=== PATIENT | female | born 1940 | race Two or more races ===

== ENCOUNTER → 2016-08-09 | Outpatient (CLI) | payer OTHER ==
[~2016-08-09] MED LIST: AMLO10TA2 OR; GLYB2.5T76 OR; LISIPOW; METF-312 OR
[2016-08-09 14:30] LABS: Basophils # (auto) 0.1 uL; Basophils % (auto) 0.6 % (0.0-2.0); Eosinophils # (auto) 0.2 uL; Hematocrit 43.7 % (36.0-46.0); Hemoglobin 13.8 g/dL (12.2-16.2); Lymphocytes # (auto) 2.1 uL; Lymphocytes % (auto) 22.7 % (10.0-50.0); Mean Corpuscular Hgb Conc. 31.6 g/dL (32.0-36.0); Mean Corpuscular Volume 88.4 fL (80.0-100.0); Mean Platelet Volume 8.5 fL (7.4-10.4); Monocytes # (auto) 0.5 uL; Monocytes % (auto) 5.2 % (0.0-12.0); Neutrophils # (auto) 6.4 uL; Neutrophils % (auto) 69.5 % (37.0-80.0); Platelet Count (auto) 271 10^3/uL (140-450); Red Cell Distribution Width 13.8 % (11.6-16.0); White Blood Cell 9.2 10^3/uL (4.4-10.8)
[2016-08-09 14:48] LABS: INR 1.01 (0.9-1.15); Partial Thromboplastin Time 26.6 sec (22.64-33.71); Prothrombin Time 10.4 sec (9.37-12.3)
[2016-08-09 14:55] LABS: Albumin 3.6 g/dL (3.4-5.0); Calcium 9.2 mg/dL (8.5-10.1)
[2016-08-09 15:02] LABS: Urine Bilirubin Negative (Negative); Urine Blood Negative /uL (Negative); Urine Color Yellow (Yellow); Urine Glucose TRACE mg/dL (Normal); Urine Ketone Negative (Negative); Urine Nitrite Negative (Negative); Urine RBC 2 /hpf (0 - 4); Urine Squamous Epithelial Cell FEW /hpf (<5); Urine Urobilinogen Normal (Negative)
[2016-08-09 15:16] LABS: BUN/Creatinine Ratio 23.3; Bilirubin, Total 0.4 mg/dL (0.2-1.0); Total Protein 7.8 g/dL (6.4-8.2)
== END | disposition home or self-care (01) ==
LOC: LAB 14:11
PROVIDERS: ATTEND Orthopaedic Surgery
DX: M17.9 Osteoarthritis of knee, unspecified (principal)
CPT/HCPCS: 36415; 80053; 81001; 85025; 85610; 85730; 86850; 86900; 86901

== ENCOUNTER → 2016-08-09 | Outpatient (CLI) | payer OTHER ==
[2016-08-09 13:44] LABS: Basophils # (auto) 0 uL; Basophils % (auto) 0.6 % (0.0-2.0); Eosinophils # (auto) 0.2 uL; Hematocrit 45.2 % (36.0-46.0); Hemoglobin 14.1 g/dL (12.2-16.2); Lymphocytes % (auto) 25.6 % (10.0-50.0); Mean Corpuscular Hemoglobin 27.9 pg (28.0-32.0); Mean Corpuscular Hgb Conc. 31.3 g/dL (32.0-36.0); Mean Corpuscular Volume 89.2 fL (80.0-100.0); Mean Platelet Volume 9.3 fL (7.4-10.4); Monocytes # (auto) 0.4 uL; Monocytes % (auto) 5.4 % (0.0-12.0); Neutrophils # (auto) 5.2 uL; Neutrophils % (auto) 66.4 % (37.0-80.0); Platelet Count (auto) 251 10^3/uL (140-450); White Blood Cell 7.9 10^3/uL (4.4-10.8)
[2016-08-09 13:59] LABS: Urine Bilirubin Negative (Negative); Urine Blood Negative /uL (Negative); Urine Color Yellow (Yellow); Urine Glucose Normal (Normal); Urine Ketone Negative (Negative); Urine Nitrite Negative (Negative); Urine RBC 2 /hpf (0 - 4); Urine Squamous Epithelial Cell FEW /hpf (<5); Urine Urobilinogen Normal (Negative); Urine pH 6.5 (5.0-8.0)
[2016-08-09 14:28] LABS: Albumin 3.7 g/dL (3.4-5.0); Calcium 9.4 mg/dL (8.5-10.1); Potassium 3.9 mmol/L (3.5-5.1)
[2016-08-09 15:17] LABS: BUN/Creatinine Ratio 25.3; Bilirubin, Total 0.5 mg/dL (0.2-1.0); Total Protein 8.2 g/dL (6.4-8.2)
== END | disposition home or self-care (01) ==
LOC: LAB 10:26
PROVIDERS: ATTEND Internal Medicine
DX: E11.42 Type 2 diabetes mellitus with diabetic polyneuropathy (principal); I10 Essential (primary) hypertension
CPT/HCPCS: 36415; 80053; 80061; 81001; 82043; 82607; 83036; 84439; 84443; 85025; 85652

== ENCOUNTER → 2016-08-13 | Day surgery (SDC) | payer OTHER ==
[~2016-08-13] VITALS: Ht 154.9 cm; Wt 63.0 kg
[~2016-08-13] MED LIST changes: +SUCCINYLCHOLINE CHLORIDE 20 MG/ML 10ML VIAL IV ONE; +ceFAZolin 1GM/50ML D5W 100 ML IV ONE
[2016-08-13 10:20] VITALS: BP 135/66
== END | disposition home or self-care (01) ==
LOC: SUR 09:53
PROVIDERS: ATTEND Orthopaedic Surgery
DX: Z53.9 Procedure and treatment not carried out, unspecified reason (principal)
CPT/HCPCS: 82962; 86850; 86900; 86901; J0330; J0690

== ENCOUNTER → 2016-11-29 | Outpatient (CLI) | payer OTHER ==
[~2016-11-29] MED LIST changes: -SUCCINYLCHOLINE CHLORIDE 20 MG/ML 10ML VIAL IV ONE; -ceFAZolin 1GM/50ML D5W 100 ML IV ONE
[2016-11-29 10:02] LABS: Basophils # (auto) 0 uL; Basophils % (auto) 0.6 % (0.0-2.0); Eosinophils # (auto) 0.2 uL; Eosinophils % (auto) 2.2 % (0.0-7.0); Hematocrit 40.6 % (36.0-46.0); Hemoglobin 13.9 g/dL (12.2-16.2); Lymphocytes # (auto) 1.8 uL; Lymphocytes % (auto) 24.4 % (10.0-50.0); Mean Corpuscular Hemoglobin 29.8 pg (28.0-32.0); Mean Corpuscular Hgb Conc. 34.2 g/dL (32.0-36.0); Mean Corpuscular Volume 87.2 fL (80.0-100.0); Mean Platelet Volume 8.2 fL (7.4-10.4); Monocytes # (auto) 0.4 uL; Monocytes % (auto) 5.3 % (0.0-12.0); Neutrophils % (auto) 67.5 % (37.0-80.0); Platelet Count (auto) 257 10^3/uL (140-450); Red Cell Distribution Width 14.6 % (11.6-16.0); White Blood Cell 7.4 10^3/uL (4.4-10.8)
[2016-11-29 10:05] LABS: Urine Bilirubin Negative (Negative); Urine Blood Negative /uL (Negative); Urine Color Yellow (Yellow); Urine Glucose Normal (Normal); Urine Ketone Negative (Negative); Urine Nitrite Negative (Negative); Urine RBC <1 /hpf (0 - 4); Urine Urobilinogen Normal (Negative); Urine pH 6.5 (5.0-8.0)
[2016-11-29 10:21] LABS: Albumin 3.7 g/dL (3.4-5.0); BUN/Creatinine Ratio 24.7; Bilirubin, Total 0.4 mg/dL (0.2-1.0); Calcium 9.1 mg/dL (8.5-10.1); Potassium 4.1 mmol/L (3.5-5.1); Total Protein 7.9 g/dL (6.4-8.2)
[2016-11-29 10:26] LABS: INR 0.98 (0.9-1.15); Partial Thromboplastin Time 26.6 sec (22.64-33.71); Prothrombin Time 10.7 sec (9.37-12.3)
== END | disposition home or self-care (01) ==
LOC: LAB 09:42
PROVIDERS: ATTEND Internal Medicine
DX: E11.9 Type 2 diabetes mellitus without complications (principal); I10 Essential (primary) hypertension; Z01.812 Encounter for preprocedural laboratory examination
CPT/HCPCS: 36415; 80053; 80061; 81001; 83036; 85025; 85610; 85730

== ENCOUNTER → 2017-02-26 | Outpatient (CLI) | payer OTHER ==
[~2017-02-26] MED LIST changes: -METF-312 OR; +METF-370 OR
[2017-02-26 11:01] LABS: Cholesterol 217 mg/dL (< 200); HDL Cholesterol 56 mg/dL (40-59); LDL Cholesterol 143 mg/dL (< 100); Triglycerides 186 mg/dL (< 150)
== END | disposition home or self-care (01) ==
LOC: LAB 09:44
PROVIDERS: ATTEND Internal Medicine
DX: E11.9 Type 2 diabetes mellitus without complications (principal); E78.3 Hyperchylomicronemia
CPT/HCPCS: 36415; 80061; 83036

== ENCOUNTER → 2017-04-09 | Outpatient (CLI) | payer OTHER ==
[~2017-04-09] VITALS: Ht 154.9 cm; Wt 63.5 kg
[~2017-04-09] MED LIST changes: +ADENOSINE 53 MG in GIVE UN-DILUTED 0 ML IV STA
== END | disposition home or self-care (01) ==
LOC: XY 08:14
PROVIDERS: ATTEND Internal Medicine Cardiovascular Disease
DX: I08.1 Rheumatic disorders of both mitral and tricuspid valves (principal)
CPT/HCPCS: 78452; 93017; 93306; A9500; J0153

== ENCOUNTER → 2017-10-15 | Outpatient (CLI) | payer OTHER ==
[~2017-10-15] MED LIST changes: -ADENOSINE 53 MG in GIVE UN-DILUTED 0 ML IV STA; -GLYB2.5T76 OR; +GLYB5TAB8 PO; -LISIPOW; +LOSA100T27 PO
[2017-10-15 09:31] LABS: Urine Bacteria NONE SEEN /hpf (None Seen); Urine Blood Negative /uL (Negative); Urine Specific Gravity 1.011 (1.001-1.035); Urine WBC 1 /hpf (0 - 5)
[2017-10-15 09:45] LABS: Cholesterol 190 mg/dL (< 200); HDL Cholesterol 66 mg/dL (40-59); LDL Cholesterol 116 mg/dL (< 100); Triglycerides 91 mg/dL (< 150)
== END | disposition home or self-care (01) ==
LOC: LAB 08:55
PROVIDERS: ATTEND Internal Medicine
DX: I12.9 Hypertensive chronic kidney disease with stage 1 through stage 4 chronic kidney disease, or unspecified chronic kidney disease (principal); E11.22 Type 2 diabetes mellitus with diabetic chronic kidney disease; N18.2 Chronic kidney disease, stage 2 (mild)
CPT/HCPCS: 36415; 80061; 81001; 83036; 84443

== ENCOUNTER → 2018-04-06 | Outpatient (CLI) | payer OTHER ==
[~2018-04-06] MED LIST changes: +AMLO10TA12 OR; -AMLO10TA2 OR; +LOSA-49 PO; -LOSA100T27 PO
[2018-04-06 10:30] LABS: Basophils # (auto) 0 uL; Basophils % (auto) 0.6 % (0.0-2.0); Eosinophils # (auto) 0.2 uL; Eosinophils % (auto) 3.5 % (0.0-7.0); Hematocrit 44.1 % (36.0-46.0); Hemoglobin 14.6 g/dL (12.2-16.2); Lymphocytes # (auto) 1.7 uL; Lymphocytes % (auto) 23.5 % (10.0-50.0); Mean Corpuscular Volume 90.8 fL (80.0-100.0); Monocytes # (auto) 0.4 uL; Neutrophils # (auto) 4.7 uL; Neutrophils % (auto) 66.4 % (37.0-80.0); Platelet Count (auto) 203 10^3/uL (140-450); Red Blood Cells 4.86 10^6/uL (4.0-5.20); Red Cell Distribution Width 15.4 % (11.8-14.3); White Blood Cell 7.1 10^3/uL (4.4-10.8)
[2018-04-06 10:55] LABS: Albumin 3.7 g/dL (3.4-5.0); BUN/Creatinine Ratio 28.6; Bilirubin, Total 0.4 mg/dL (0.2-1.0); Calcium 9.1 mg/dL (8.5-10.1); Potassium 4.5 mmol/L (3.5-5.1); Total Protein 7.6 g/dL (6.4-8.2)
[2018-04-06 11:08] LABS: Free T4 (Free Thyroxine) 0.96 ng/dL (0.89-1.76)
== END | disposition home or self-care (01) ==
LOC: LAB 09:50
PROVIDERS: ATTEND Internal Medicine
DX: I10 Essential (primary) hypertension (principal); E11.9 Type 2 diabetes mellitus without complications
CPT/HCPCS: 36415; 80053; 82043; 82607; 83036; 83721; 84439; 84443; 85025

== ENCOUNTER → 2018-09-29 | Outpatient (CLI) | payer OTHER ==
[2018-09-29 10:58] LABS: Albumin 3.8 g/dL (3.4-5.0); Calcium 9.2 mg/dL (8.5-10.1); Potassium 3.7 mmol/L (3.5-5.1)
[2018-09-29 11:03] LABS: BUN/Creatinine Ratio 20.4; Bilirubin, Total 0.9 mg/dL (0.2-1.0); Total Protein 7.9 g/dL (6.4-8.2)
== END | disposition home or self-care (01) ==
LOC: LAB 10:20
PROVIDERS: ATTEND Internal Medicine
DX: E11.22 Type 2 diabetes mellitus with diabetic chronic kidney disease (principal); I12.9 Hypertensive chronic kidney disease with stage 1 through stage 4 chronic kidney disease, or unspecified chronic kidney disease; N18.3 Chronic kidney disease, stage 3 (moderate)
CPT/HCPCS: 36415; 80053; 80061; 83036

== ENCOUNTER 2018-12-26 21:19 | Inpatient (IN) | payer OTHER | END 2019-01-01 15:00 | disposition home or self-care (01) | LOC: TELE-CENTR 12-29 15:00 → TELE 21:21 → TELE-CENTR 12-27 04:34 → DOU IN ICU 12-27 18:27 → ER 21:19 | DX: A41.9 Sepsis, unspecified organism (principal); G93.41 Metabolic encephalopathy; J18.9 Pneumonia, unspecified organism; N17.9 Acute kidney failure, unspecified; N39.0 Urinary tract infection, site not specified ==

== ENCOUNTER → 2019-01-14 | Outpatient (CLI) | payer OTHER ==
[~2019-01-14] MED LIST changes: -AMLO10TA12 OR; +AMLO10TA12 PO; +ASPI-498 PO; +ATOR40TA52 PO; +GLIP-116 PO; -GLYB5TAB8 PO; +IBUP600T27 PO; -METF-370 OR; +METF-372 PO
[2019-01-14 13:45] LABS: Basophils # (auto) 0.1 uL; Eosinophils # (auto) 0 uL; Lymphocytes # (auto) 0.9 uL; Monocytes # (auto) 0.2 uL
[2019-01-14 13:48] LABS: Eosinophils % (auto) 0.1 % (0.0-7.0); Hematocrit 37.4 % (36.0-46.0); Hemoglobin 12.7 g/dL (12.2-16.2); Lymphocytes % (auto) 12.1 % (10.0-50.0); Mean Corpuscular Hemoglobin 30.5 pg (28.0-32.0); Mean Corpuscular Hgb Conc. 34.1 g/dL (32.0-36.0); Mean Corpuscular Volume 89.5 fL (80.0-100.0); Monocytes % (auto) 3.1 % (0.0-12.0); Neutrophils % (auto) 83.7 % (37.0-80.0); Nucleated Red Blood Cells % 0.1 %; Red Blood Cells 4.18 10^6/uL (4.0-5.20); Red Cell Distribution Width 14.4 % (11.8-14.3); White Blood Cell 7.2 10^3/uL (4.4-10.8)
[2019-01-14 13:52] LABS: Platelet Count (auto) 464 10^3/uL (140-450)
[2019-01-14 13:55] LABS: Urine Bacteria NONE SEEN /hpf (None Seen); Urine Blood Negative /uL (Negative); Urine Specific Gravity 1.017 (1.001-1.035); Urine WBC 9 /hpf (0 - 5)
[2019-01-14 14:08] LABS: Albumin 3.5 g/dL (3.4-5.0); Anion Gap 11 (5-15); BUN/Creatinine Ratio 28.8; Blood Urea Nitrogen 40 mg/dL (7-18); Calcium 9.3 mg/dL (8.5-10.1); Carbon Dioxide 22 mmol/L (21-32); Chloride 107 mmol/L (98-107); GFR African American 47 mL/min; GFR Non-African American 39 mL/min; Glucose 172 mg/dL (74-106); Potassium 4.6 mmol/L (3.5-5.1); Sodium 140 mmol/L (136-145)
[2019-01-14 14:11] LABS: Alanine Aminotransferase 28 U/L (13-56); Alkaline Phosphatase 90 U/L (45-117); Aspartate Aminotransferase 17 U/L (15-37); Bilirubin, Total 0.4 mg/dL (0.2-1.0); Total Protein 8.2 g/dL (6.4-8.2)
== END | disposition home or self-care (01) ==
LOC: LAB 13:16
PROVIDERS: ATTEND Internal Medicine
DX: I12.9 Hypertensive chronic kidney disease with stage 1 through stage 4 chronic kidney disease, or unspecified chronic kidney disease (principal); E11.22 Type 2 diabetes mellitus with diabetic chronic kidney disease; N18.3 Chronic kidney disease, stage 3 (moderate); E87.6 Hypokalemia
CPT/HCPCS: 36415; 80053; 81001; 85025

== ENCOUNTER → 2019-01-19 | Outpatient (CLI) | payer OTHER ==
[2019-01-19 09:07] LABS: Partial Thromboplastin Time 25.2 sec (23.64-32.05)
[2019-01-19 09:51] LABS: Basophils # (auto) 0.1 uL; Eosinophils # (auto) 0.3 uL; Eosinophils % (auto) 2.5 % (0.0-7.0); Hemoglobin 12.3 g/dL (12.2-16.2); Lymphocytes # (auto) 2.3 uL; Lymphocytes % (auto) 22.2 % (10.0-50.0); Mean Corpuscular Hemoglobin 29.9 pg (28.0-32.0); Mean Corpuscular Hgb Conc. 33.3 g/dL (32.0-36.0); Mean Corpuscular Volume 89.9 fL (80.0-100.0); Monocytes # (auto) 0.5 uL; Monocytes % (auto) 4.4 % (0.0-12.0); Neutrophils # (auto) 7.3 uL; Neutrophils % (auto) 69.9 % (37.0-80.0); Platelet Count (auto) 312 10^3/uL (140-450); Red Blood Cells 4.11 10^6/uL (4.0-5.20); Red Cell Distribution Width 14.5 % (11.8-14.3); White Blood Cell 10.4 10^3/uL (4.4-10.8)
== END | disposition home or self-care (01) ==
LOC: LAB 08:10
PROVIDERS: ATTEND Internal Medicine
DX: Z01.818 Encounter for other preprocedural examination (principal); E04.1 Nontoxic single thyroid nodule; E78.00 Pure hypercholesterolemia, unspecified; E11.9 Type 2 diabetes mellitus without complications
CPT/HCPCS: 36415; 85025; 85610; 85730

== ENCOUNTER → 2019-04-06 | Outpatient (CLI) | payer OTHER ==
[~2019-04-06] MED LIST changes: -AMLO10TA12 PO; +AMLO10TA13 PO; -GLIP-116 PO; +GLIP10TA9 PO; +LOSA-39 PO; -LOSA-49 PO
[2019-04-06 10:16] LABS: Basophils # (auto) 0.1 uL; Basophils % (auto) 0.8 % (0.0-2.0); Eosinophils # (auto) 0.2 uL; Eosinophils % (auto) 3.4 % (0.0-7.0); Hemoglobin 14.5 g/dL (12.2-16.2); Lymphocytes # (auto) 1.8 uL; Lymphocytes % (auto) 24.5 % (10.0-50.0); Mean Corpuscular Hemoglobin 31.2 pg (28.0-32.0); Mean Corpuscular Hgb Conc. 35.3 g/dL (32.0-36.0); Mean Corpuscular Volume 88.5 fL (80.0-100.0); Monocytes # (auto) 0.4 uL; Monocytes % (auto) 5.6 % (0.0-12.0); Neutrophils # (auto) 4.7 uL; Neutrophils % (auto) 65.7 % (37.0-80.0); Platelet Count (auto) 222 10^3/uL (140-450); Red Blood Cells 4.63 10^6/uL (4.0-5.20); Red Cell Distribution Width 14.3 % (11.8-14.3); White Blood Cell 7.2 10^3/uL (4.4-10.8)
[2019-04-06 10:34] LABS: Urine Bacteria FEW /hpf (None Seen); Urine Blood Negative /uL (Negative); Urine Specific Gravity 1.008 (1.001-1.035); Urine WBC 8 /hpf (0 - 5)
[2019-04-06 10:42] LABS: Free T4 (Free Thyroxine) 1.17 ng/dL (0.89-1.76)
[2019-04-06 10:49] LABS: Albumin 4.2 g/dL (3.4-5.0); Calcium 9.8 mg/dL (8.5-10.1); Potassium 3.7 mmol/L (3.5-5.1)
[2019-04-06 10:56] LABS: Bilirubin, Total 0.4 mg/dL (0.2-1.0); Total Protein 8.6 g/dL (6.4-8.2)
== END | disposition home or self-care (01) ==
LOC: LAB 09:32
PROVIDERS: ATTEND Internal Medicine
DX: E11.22 Type 2 diabetes mellitus with diabetic chronic kidney disease (principal); I12.9 Hypertensive chronic kidney disease with stage 1 through stage 4 chronic kidney disease, or unspecified chronic kidney disease; N18.9 Chronic kidney disease, unspecified
CPT/HCPCS: 36415; 80053; 80061; 81001; 82043; 82607; 83036; 84439; 84443; 85025; 85652

== ENCOUNTER → 2019-08-02 | Outpatient (CLI) | payer OTHER | END | disposition home or self-care (01) | LOC: LAB 12:27 | PROVIDERS: ATTEND Internal Medicine | DX: E11.9 Type 2 diabetes mellitus without complications (principal) | CPT/HCPCS: 36415; 83036 ==

== ENCOUNTER 2020-05-22 13:44 | Inpatient (IN) | payer OTHER ==
[~2020-05-22] VITALS: Ht 162.6 cm; Wt 54.7 kg
[2020-05-22] MEDS ORDERED: MORPHINE SULF INJ 2 MG/ML SYRINGE 1ML IV PRN ×3 (16:15→21:15)
[2020-05-22] MEDS ORDERED: NITROGLYCERIN 0.4 MG SL TAB SL PRN ×2 (16:15→21:15)
[2020-05-22 16:27] LABS: Basophils # (auto) 0 10 ^3/uL (0-0.2); Basophils % (auto) 0.4 % (0.0-2.0); Eosinophils # (auto) 0 10 ^3/uL (0-0.8); Hematocrit 41.4 % (36.0-46.0); Hemoglobin 14.2 g/dL (12.2-16.2); Lymphocytes # (auto) 0.7 10 ^3/uL (0.4-5.4); Lymphocytes % (auto) 11.8 % (10.0-50.0); Mean Corpuscular Hemoglobin 30.9 pg (28.0-32.0); Mean Corpuscular Hgb Conc. 34.2 g/dL (32.0-36.0); Mean Corpuscular Volume 90.2 fL (80.0-100.0); Monocytes # (auto) 0.4 10 ^3/uL (0-1.3); Monocytes % (auto) 6.3 % (0.0-12.0); Neutrophils % (auto) 81.5 % (37.0-80.0); Nucleated Red Blood Cells % 0.2 %; Platelet Count (auto) 133 10^3/uL (140-450); Red Blood Cells 4.59 10^6/uL (4.0-5.20); Red Cell Distribution Width 13.9 % (11.8-14.3); White Blood Cell 6.1 10^3/uL (4.4-10.8)
[2020-05-22 16:52] LABS: Calcium 8.5 mg/dL (8.5-10.1); Potassium 3.9 mmol/L (3.5-5.1)
[2020-05-22 16:58] LABS: Albumin 2.9 g/dL (3.4-5.0); BUN/Creatinine Ratio 18.7; Bilirubin, Total 0.5 mg/dL (0.2-1.0); Total Protein 7.9 g/dL (6.4-8.2)
[2020-05-22] MEDS ORDERED: CHLO50TA PO (17:16)
[2020-05-22] MEDS ORDERED: INSUINJ37 SC (17:16)
[2020-05-22] MEDS ORDERED: TRI05TP TOP (17:28)
[2020-05-22] MEDS ORDERED: GABA100C9 PO (17:30)
[2020-05-22] MEDS ORDERED: ACETAMINOPHEN 325 MG TAB PO PRN (21:15)
[2020-05-22] MEDS ORDERED: DOCUSATE SOD 100 MG CAP PO PRN (21:15)
[2020-05-22] MEDS ORDERED: HYDROcodone-ACET 5/325MG TAB PO PRN (21:15)
[2020-05-22] MEDS ORDERED: SODIUM CHLORIDE 0.9% 1,000 ML IV SCH (21:15)
[2020-05-22] MEDS ORDERED: DEXTROSE (50%) 50ML SYRG IV PRN (21:15)
[2020-05-22] MEDS ORDERED: LACTATED RINGER'S 1,000 ML IV ONE (21:15)
[2020-05-22] MEDS ORDERED: methylPREDNISolone SOD SUCC 125 MG/2 ML VL IV ONE (21:15)
[2020-05-22] MEDS ORDERED: PIPERACILLIN-TAZOB 3.375GM 100 ML IV ONE (21:15)
[2020-05-22] MEDS ORDERED: ALUM & MAG HYDROX-SIMETH LIQ(MAALOX) 30 ML PO PRN (21:15)
[2020-05-22] MEDS ORDERED: ACETAMINOPHEN 500 MG TAB PO PRN (21:15)
[2020-05-22] MEDS ORDERED: VANCOMYCIN PER PHARMACY 0 MG IV SCH (21:15)
[2020-05-22] MEDS ORDERED: ONDANSETRON HCL 4 MG/2 ML VIAL IV PRN (21:15)
[2020-05-22] MEDS ORDERED: LORazepam 0.5 MG TAB PO PRN (21:15)
[2020-05-22] MEDS ORDERED: ENOXAPARIN SOD 60 MG/0.6 ML SYRINGE SC ONE (21:30)
[2020-05-22] MEDS ORDERED: hydrALAZINE HCL 20 MG/ML VL IV PRN (21:45)
[2020-05-22 22:40] VITALS: BP 142/61
--- NOTE | 2020-05-22 22:40 | NUR ---
Telemetry admit from ER FERDINAND DEGROOT admitted to Telemetry unit after SBAR received. Patient oriented to LEONEL GRIMM, RN primary RN, unit, room, bed, and unit policies regarding patient care and visiting hours. Patient now on continuous telemetry monitoring, tele box # 14 and telemetry reading on arrival to unit is SR. Patient placed on bedside oxygen, encouraged to call if they need something. All questions and concerns addressed, patient verbalized understanding.
--- NOTE | 2020-05-22 22:40 | NUR ---
PER PATIENT SHE WILL PROVIDE LIST OF HOME MEDICATIONS IN AM
--- NOTE | 2020-05-22 22:40 | NUR ---
PATIENT EDUCATED ON HOW TO USE INCENTIVE SPIROMETER PATIENT VERBALIZED UNDERSTANDING
--- NOTE | 2020-05-22 22:48 | NUR ---
Respiratory note: PT SEEN AND ASSESSED AT THIS TIME. NO DISTRESS NOTED. UNABLE TO ADMINISTER SCHEDULED MDI TREATMENTS DUE TO PHARMACY UNABLE TO GIVE MEDS UNTIL IN HOUSE COVID TEST IS DONE. RN MADE AWARE. HR 77 RR 16 SP02 96% ON 4L NASAL CANNULA.
[2020-05-22 23:09] LABS: Magnesium 2.4 mg/dL (1.6-2.6)
[2020-05-22 23:23] LABS: CRP High Sensitivity 14.1 mg/dL (< 0.3)
[2020-05-23] VITALS (8 sets, daily range): BP systolic 113–134; BP diastolic 66–70
[2020-05-23] MEDS ORDERED: VANCOMYCIN 1GM/250ML 250 ML IV ONE
[2020-05-23] MEDS: ATORVASTATIN 20 MG TAB PO SCH ×2 (00:45→22:00)
[2020-05-23] MEDS: methylPREDNISolone SOD SUCC 40 MG/ML VL IV SCH ×2 (00:45→05:52)
[2020-05-23] MEDS: GABAPENTIN 100 MG CAP PO SCH ×4 (00:45→22:00)
[2020-05-23] MEDS: ACCU-CHEK COMFORT CURVE STRIP VI SCH ×5 (00:50→22:00)
[2020-05-23] MEDS: InsuLIN REG 1unit/0.01ml Soln (100units/ml) SC SCH ×5 (00:50→22:15)
--- NOTE | 2020-05-23 04:05 | NUR ---
COVID AMARILYS SWAB TAKEN DOWN TO LAB
[2020-05-23 05:38] LABS: Basophils # (auto) 0 10 ^3/uL (0-0.2); Basophils % (auto) 0.1 % (0.0-2.0); Eosinophils # (auto) 0 10 ^3/uL (0-0.8); Hematocrit 39.9 % (36.0-46.0); Hemoglobin 13.1 g/dL (12.2-16.2); Lymphocytes # (auto) 0.4 10 ^3/uL (0.4-5.4); Lymphocytes % (auto) 6.9 % (10.0-50.0); Mean Corpuscular Hemoglobin 29.9 pg (28.0-32.0); Mean Corpuscular Hgb Conc. 32.8 g/dL (32.0-36.0); Mean Corpuscular Volume 91.2 fL (80.0-100.0); Monocytes # (auto) 0.2 10 ^3/uL (0-1.3); Monocytes % (auto) 3.5 % (0.0-12.0); Neutrophils # (auto) 5.4 10 ^3/uL (1.6-8.6); Neutrophils % (auto) 89.5 % (37.0-80.0); Platelet Count (auto) 135 10^3/uL (140-450); Red Blood Cells 4.38 10^6/uL (4.0-5.20); Red Cell Distribution Width 13.7 % (11.8-14.3)
[2020-05-23] MEDS: FUROSEMIDE 20 MG/2 ML VIAL IV SCH ×2 (05:53→19:02)
[2020-05-23] MEDS: PIPERACILLIN-TAZOB 3.375GM 100 ML IV SCH ×3 (05:54→19:02)
[2020-05-23 05:56] LABS: Albumin 2.5 g/dL (3.4-5.0); Calcium 8.2 mg/dL (8.5-10.1); Cholesterol 144 mg/dL (< 200); Potassium 4.3 mmol/L (3.5-5.1); Triglycerides 144 mg/dL (< 150)
[2020-05-23 06:00] LABS: HDL Cholesterol 46 mg/dL (40-59); LDL Cholesterol 90 mg/dL (< 100)
[2020-05-23] MEDS: ALBUTEROL SULF HFA 90MCG INH 200DOSE IN SCH ×3 (06:00→21:36)
[2020-05-23 06:02] LABS: BUN/Creatinine Ratio 23.8; Bilirubin, Total 0.6 mg/dL (0.2-1.0); Total Protein 6.8 g/dL (6.4-8.2)
[2020-05-23] MEDS: BUDESONIDE (INHALATION) 180 MCG IH IN SCH ×2 (06:10→21:36)
[2020-05-23 06:11] LABS: Urine Bacteria MANY /hpf (None Seen); Urine Blood TRACE /uL (Negative); Urine Specific Gravity 1.019 (1.001-1.035); Urine WBC 11 /hpf (0 - 5)
[2020-05-23 06:33] LABS: Alcohol, Urine < 3.0 mg/dL (0-10); Amphetamine Screen, Urine NEGATIVE (NEGATIVE); Barbiturate Scree,Urine NEGATIVE (NEGATIVE); Benzodiazephine Screen, Urine NEGATIVE (NEGATIVE); Cannabinoid Screen, Urine NEGATIVE (NEGATIVE); Cocaine Screen, Urine NEGATIVE (NEGATIVE); Opiate Scree,Urine NEGATIVE (NEGATIVE); Phencyclidine Screen, Urine NEGATIVE (NEGATIVE)
--- NOTE | 2020-05-23 07:15 | NUR ---
patient resting in bed denies sob distress or pain.
--- NOTE | 2020-05-23 07:30 | NUR ---
Opening Shift Note RECEIVED REPORT FORM NOC RN. Assumed care of patient, awake and alert. PATIENT ON OXYGEN AT 5 LPM VIA NASAL CANNULA WITH no S/S of distress/SOB or pain. BED IN LOWEST, LOCKED POSITION WITH SIDERAILS UP x2 AND CALL LIGHT WITHIN REACH. Instructed on POC and to call for assist PRN, will continue to monitor for changes Q1hr and PRN.
[2020-05-23] MEDS ORDERED: VANCOMYCIN 1GM/250ML 250 ML IV SCH (10:00)
[2020-05-23] MEDS: LOSARTAN POTASSIUM 50 MG TAB PO SCH (10:20)
[2020-05-23] MEDS: ZINC SULFATE 220mg CAP or TAB PO SCH (10:20)
[2020-05-23] MEDS: HCTZ 25 MG TAB PO SCH (10:20)
[2020-05-23] MEDS: ASCORBIC ACID 1,000 MG TAB PO SCH (10:21)
[2020-05-23] MEDS: CHOLECALCIFEROL (VITD3) 2,000 UNIT CAP PO SCH (10:21)
[2020-05-23] MEDS: ENOXAPARIN SOD 60 MG/0.6 ML SYRINGE SC SCH ×2 (10:21→22:00)
[2020-05-23] MEDS ORDERED: INSULIN LANTUS (GLARGINE) 1 /0.01ml (100units/ml) SC ONE (12:15)
[2020-05-23] MEDS ORDERED: DexAMETHasone SOD PHOS 10MG/1ML VIAL INJ IV ONE (12:30)
[2020-05-23] MEDS ORDERED: REMDESIVIR 200 MG in NS 210ml LOADING DOSE ADULT IV ONE (16:00)
--- NOTE | 2020-05-23 16:40 | NUR ---
DR. BARR RETURNED PAGE. NEW ORDERS RECEIVED AND CARRIED OUT. 25 UNITS REGULAR INSULIN.
--- NOTE | 2020-05-23 17:48 | NUR ---
RECEIVED CALL FROM BLOOD BANK. THEY WILL THAW COVID CONVALESCENT PLASMA AT 2000 TONIGHT.
--- NOTE | 2020-05-23 21:15 | NUR ---
CONVALESCENT PLASMA TRANSFUSION STARTED AT 2114.
--- NOTE | 2020-05-23 23:35 | NUR ---
CONVALESCENT TRANSFUSION ENDED AT 2332.
--- NOTE | 2020-05-24 00:30 | NUR ---
HOSPITALIST PAGED Patient's blood sugar is 495 mg/dL. Patient given 10 units and hospitalist has been paged. RICCO Simth has been notified. New order for Q4HR Accu-check on moderate insulin scale.
[2020-05-24 00:45] VITALS: BP 126/70
[2020-05-24] MEDS: InsuLIN REG 1unit/0.01ml Soln (100units/ml) SC SCH ×6 (04:00→22:00)
[2020-05-24] MEDS: ACCU-CHEK COMFORT CURVE STRIP VI SCH ×5 (04:00→20:00)
[2020-05-24 05:49] VITALS: BP 112/61
[2020-05-24] MEDS: GABAPENTIN 100 MG CAP PO SCH ×3 (06:00→22:22)
--- NOTE | 2020-05-24 06:00 | NUR ---
HOSPITALIST PAGED The patient's glucose level was 502 mg/dL. 15 units of insulin was given following moderate sliding scale. Patient's glucose level decreased to 460 mg/dl after receiving the 15 units of insulin. Hospitalist has been paged.
[2020-05-24] MEDS: ALBUTEROL SULF HFA 90MCG INH 200DOSE IN SCH ×3 (06:24→22:51)
[2020-05-24] MEDS: FUROSEMIDE 20 MG/2 ML VIAL IV SCH ×2 (06:26→18:27)
[2020-05-24] MEDS: PIPERACILLIN-TAZOB 3.375GM 100 ML IV SCH ×2 (06:26)
[2020-05-24 06:35] LABS: Basophils # (auto) 0 10 ^3/uL (0-0.2); Basophils % (auto) 0.1 % (0.0-2.0); Eosinophils # (auto) 0 10 ^3/uL (0-0.8); Hematocrit 35.5 % (36.0-46.0); Lymphocytes # (auto) 0.5 10 ^3/uL (0.4-5.4); Lymphocytes % (auto) 5.9 % (10.0-50.0); Mean Corpuscular Hemoglobin 30.5 pg (28.0-32.0); Mean Corpuscular Hgb Conc. 33.8 g/dL (32.0-36.0); Mean Corpuscular Volume 90.4 fL (80.0-100.0); Monocytes # (auto) 0.4 10 ^3/uL (0-1.3); Monocytes % (auto) 4.8 % (0.0-12.0); Neutrophils % (auto) 89.2 % (37.0-80.0); Platelet Count (auto) 148 10^3/uL (140-450); Red Blood Cells 3.92 10^6/uL (4.0-5.20); Red Cell Distribution Width 13.8 % (11.8-14.3); White Blood Cell 7.9 10^3/uL (4.4-10.8)
[2020-05-24 07:05] LABS: Potassium 3.1 mmol/L (3.5-5.1)
--- NOTE | 2020-05-24 07:05 | NUR ---
HOSPITALIST RETURN PAGE Notified RICCO Smith about the patient's glucose level. No new orders received.
[2020-05-24 07:17] LABS: BUN/Creatinine Ratio 29.5; Calcium 8.1 mg/dL (8.5-10.1)
--- NOTE | 2020-05-24 07:17 | NUR ---
CRITICAL GLUCOSE Received critical glucose of 484 mg/dL from lab. Hospitalist is aware of the patient's elevated glucose. Will endorse to day shift RN.
--- NOTE | 2020-05-24 07:20 | NUR ---
OPENING NOTE ASSUMED CARE OF PT. ALERT AND ORIENTED. NO S/S OF SOB/DISTRESS NOTED. BED SET TO LOWEST POSITION/LOCKED, BEDSIDE RAILS UP X2, CALL LIGHT WITHIN REACH. INSTRUCTED PT TO CALL FOR ASSISTANCE. UPDATED ON POC. PT VERBALIZED UNDERSTANDING. WILL CONTINUE TO MONITOR Q 1HR AND PRN.
--- NOTE | 2020-05-24 08:15 | NUR ---
BLOOD GLUCOSE PATIENTS BG IS 454 MG/DL. PROTOCOL INITIATED. WILL INFORM . 2679 PAGED RE: BG IS 454 MG/DL. AWAITING CALL BACK.
[2020-05-24 08:34] VITALS: BP 110/64
[2020-05-24] MEDS ORDERED: InsuLIN REG 1unit/0.01ml Soln (100units/ml) SC ONE (08:45)
[2020-05-24] MEDS: ZINC SULFATE 220mg CAP or TAB PO SCH (09:02)
[2020-05-24] MEDS: LOSARTAN POTASSIUM 50 MG TAB PO SCH (09:02)
[2020-05-24] MEDS: ASCORBIC ACID 1,000 MG TAB PO SCH (09:04)
[2020-05-24] MEDS: HCTZ 25 MG TAB PO SCH (09:04)
[2020-05-24] MEDS: CHOLECALCIFEROL (VITD3) 2,000 UNIT CAP PO SCH (09:05)
[2020-05-24] MEDS: ENOXAPARIN SOD 60 MG/0.6 ML SYRINGE SC SCH (09:07)
[2020-05-24] MEDS: DexAMETHasone SOD PHOS 10MG/1ML VIAL INJ IV SCH (09:15)
[2020-05-24] MEDS ORDERED: INSULIN LANTUS (GLARGINE) 1 /0.01ml (100units/ml) SC SCH ×2 (10:00→22:00)
[2020-05-24] MEDS: PIPERACILLIN-TAZOB 2.25GM 50 ML IV SCH ×2 (12:24→18:27)
--- NOTE | 2020-05-24 12:30 | NUR ---
BLOOD GLUCOSE PATIENTS BG IS 489 MG/DL. PROTOCOL INITIATED. WILL INFORM MD. MD SPOKE TO MD AT NURSES STATION INFORMED RE ABOUT BG. NO NEW ORDERS GIVEN. WILL CONTINUE TO MONITOR.
[2020-05-24 13:00] VITALS: BP 150/76
[2020-05-24] MEDS: BUDESONIDE (INHALATION) 180 MCG IH IN SCH ×2 (14:40→22:51)
--- NOTE | 2020-05-24 16:21 | NUR ---
BLOOD GLUCOSE PATIENTS BG IS 482 MG/DL. PROTOCOL INITIATED. MD AWARE, NO NEW ORDERS.
--- NOTE | 2020-05-24 16:40 | NUR ---
TRANSFER RECEIVED PT FROM [facility]. REPORT RECEIVED FROM DAY SHIFT KAYKAY SANCHEZ. PT AWAKE/ALERT AND ORIENTED X4. PT CONNECTED TO BEDSIDE MONITOR. PT SATING AT 80% ON 15L ON NON-REBREATHER MASK. BP 163/73, HR 84. NO COMPLAINTS OF PAIN. IV TO LEFT WRIST 22G SALINE LOCKED. RIGHT AC 20G INSERTED ON ARRIVAL DUE TO PREVIOUS IV DISLODGED. PER PREVIOUS REPORT PATIENT IS STANDBY ASSIST TO BEDSIDE COMMODE. HOWEVER, EDUCATED USE OF BEDPAN FOR SAFETY DUE TO HIGH FLOW. BED IN LOWEST LOCKED POSITION, SAFETY PRECAUTIONS IN PLACE AND CALL LIGHT WITHIN REACH.
--- NOTE | 2020-05-24 16:40 | NUR ---
GAVE REPORT AND ENDORSED CARE TO KAYKAY CHEW. PATIENT TRANSFERRED TO [facility] ROOM 266 VIA WHEELCHAIR, NO S/S OD SOB/DISTRESS NOTED.
[2020-05-24 16:55] VITALS: BP 149/78
--- NOTE | 2020-05-24 17:05 | NUR ---
RESPIRATORY RESPIRATORY CALLED FOR PT SATING AT 80%. PT NOW ON HIGH FLOW O2 @ 60L/MIN AND FIO2 @90%. PT RESTING COMFORTABLY ON LEFT SIDE. NO SIGNS OF DISTRESS.
[2020-05-24] MEDS: REMDESIVIR 100mg in NS 230ml DAILYx4DAYS (NO VENT) IV SCH (17:06)
[2020-05-24 18:34] VITALS: BP 112/73
--- NOTE | 2020-05-24 18:34 | NUR ---
Respiratory note: RECEIVED PT ON HFNC UNIT, HFNC CHECK DONE FROM PTS ROOM DOOR DUE TO ISOLATION PRECAUTIONS. UNIT CONNECTED TO MEDICAL AIR AND O2 WALL SOURCE. YADIEL HEATER CONNECTED TO RED OUTLET. AMBU BAG AND MASK AT BEDSIDE. PT CURRENTLY LAYING ON HER LEFT SIDE. NO CHANGES DONE WILL CONTINUE TO MONITOR.
--- NOTE | 2020-05-24 18:37 | NUR ---
CLOSING NOTE PATIENT RESTING ON LEFT SIDE. O2 SAT 98% ON HIGH FLOW 60L AND FIO2 90% WITH NO SIGNS OF DISTRESS. BP 112/73, HR 63. ZOSYN RUNNING @ 16.6ML/HR ON RIGHT AC. BED IN LOWEST LOCKED POSITION, SAFETY PRECAUTIONS IN PLACE AND CALL LIGHT WITHIN REACH.
--- NOTE | 2020-05-24 19:34 | NUR ---
CAME TO [place] TODAY FROM THE [facility] COVID UNIT. ORIGINALLY CAME FROM THE URGENT CARE WITH COUGH AND WORSENING DYSPNEA. MD DIAGNOSIS: HYPOXIC RESPIRATORY FAILURE. COVID PNA. HAD ONE DOSE OF REMDESIVIR AND CONVALESCENT PLASMA. IS ON DECADRON, LOVENOX, HCTH AND LANTUS. BLOOD SUGARS HAVE BEEN IN THE 400S. HAD A CHEST CT TODAY. VOIDS. PLACED ON HI FLOW 60L AND FIO2 90%. HR 61. RR 24-25. O2 AT 100%. HAS 2 PERIPHERAL IVS. NSR WITHOUT ECTOPY.
--- NOTE | 2020-05-24 20:00 | NUR ---
ALLOWED HER TO GET UP TO THE COMMODE TO VOID. SHE WAS STABLE ON HER FEET. VOIDED A LARGE AMOUNT OF CLEAR LT DEDE LIQUID. NO BM. PLACED HERSELF BACK IN BED. DID NOT TOUCH DINNER. NSR WITHOUT ECTOPY. SBP WITHIN PARAMETERS. MISSING TEETH. CLEAR SPEECH. IVS SHOW NO REDNESS , SWELLING OR DRNG. RT HERE TO DO ABG.
--- NOTE | 2020-05-24 22:00 | NUR ---
NEW LANTUS ORDER. BLOOD SUGAR 180.
[2020-05-24] MEDS: ATORVASTATIN 20 MG TAB PO SCH (22:22)
[2020-05-25] VITALS (13 sets, daily range): BP systolic 91–119; BP diastolic 45–72
--- NOTE | 2020-05-25 | NUR ---
SBP LOW WHEN SHE SLEPT. WOKE HER UP . BP WAS GOOD. NO FEVER. PATIENT COUGHED. NONPRODUCTIVE COUGH. ORIENTED. SPEECH CLEAR. HAS BEEN SLEEPING A LOT TONIGHT.
--- NOTE | 2020-05-25 | NUR ---
accucheck 106
--- NOTE | 2020-05-25 01:10 | NUR ---
DESATURATION TO 80. HAD HER DO HER INCENTIVE SPIROMETER. COUGHED SEVERAL TIMES BRINGING HER O2 SAT UP TO 96%. BUT THEN SHE WOULD GO BACK DOWN TO 88%. HAD HER GO THROUGH 3 MORE COUGHING SESSIONS WITH THE SAME RESPONSE. RT NOTIFIED. SHE HAS BEEN GIVING HER CHEST PT. O2 SATS CAME UP AND WENT DOWN TO 90%. PATIENT IS PRONING. O2 SAT IS NOW 96%. DURING THE COUGHING EPISODES HER HEART RATE WENT DOWN TO 40.
--- NOTE | 2020-05-25 01:44 | NUR ---
Paged to bedside pt desaturated randomly. PT was instructed to cough by KAYKAY Hubbard. No sputum expectorated but pt stated feeling better after cough attempts. Will enter room to assist.
--- NOTE | 2020-05-25 01:50 | NUR ---
Pt experiencing consistent desaturation. CPT provided posteriorly saturation increased when pt on her side. Asked pt if she thinks she can tolerate being on her stomach in prone position. Pt agreed and carefully assisted into prone position. KAYKAY Hubbard at beside and aware of interventions take.
--- NOTE | 2020-05-25 02:30 | NUR ---
REQUESTING BEDPAN. SMALL BROWN FORMED SOFT STOOL. VIVIAN AREA CLEANED AND Z GUARD PUT ON. Addendum: 05/25/20 at 0258 by ROSETTE MEDINA RN WRONG CHART
--- NOTE | 2020-05-25 02:52 | NUR ---
LAB HERE. PRONING IS WORKING. O2 SAT 99%. RR 24.
--- NOTE | 2020-05-25 03:15 | NUR ---
LAYING ON LEFT SIDE NOW, O2 SAT IS 90%
[2020-05-25] MEDS: ACCU-CHEK COMFORT CURVE STRIP VI SCH ×7 (04:00→23:51)
[2020-05-25] MEDS: InsuLIN REG 1unit/0.01ml Soln (100units/ml) SC SCH ×7 (04:00→23:50)
--- NOTE | 2020-05-25 04:15 | NUR ---
LEFT WRIST IV KINKED. REMOVED. NEW 22 G PLACED AT LEFT WRIST. BLOOD SUGAR 58. ONE AMP OF D50 GIVEN. RECHECK WAS 217. LYING ON HER LEFT SIDE IS MOST COMFORTABLE. HER O2 SAT HAS BEEN 93-95. SINUS BRADYCARDIA 55-60. NO ECTOPY. WHEN SHE FIRST WAKES UP, HER BLOOD PRESSURE IS LOW. WHEN SHE IS AWAKE IT IS 90.
[2020-05-25 04:24] LABS: Basophils # (auto) 0 10 ^3/uL (0-0.2); Basophils % (auto) 0.2 % (0.0-2.0); Eosinophils # (auto) 0 10 ^3/uL (0-0.8); Hematocrit 36.4 % (36.0-46.0); Hemoglobin 12.1 g/dL (12.2-16.2); Lymphocytes # (auto) 0.6 10 ^3/uL (0.4-5.4); Lymphocytes % (auto) 5.5 % (10.0-50.0); Mean Corpuscular Hemoglobin 29.6 pg (28.0-32.0); Mean Corpuscular Hgb Conc. 33.2 g/dL (32.0-36.0); Mean Corpuscular Volume 89.1 fL (80.0-100.0); Monocytes # (auto) 0.5 10 ^3/uL (0-1.3); Monocytes % (auto) 4.8 % (0.0-12.0); Neutrophils # (auto) 9.1 10 ^3/uL (1.6-8.6); Neutrophils % (auto) 89.5 % (37.0-80.0); Nucleated Red Blood Cells % 0.1 %; Platelet Count (auto) 185 10^3/uL (140-450); Red Blood Cells 4.09 10^6/uL (4.0-5.20); Red Cell Distribution Width 13.6 % (11.8-14.3); White Blood Cell 10.1 10^3/uL (4.4-10.8)
--- NOTE | 2020-05-25 04:49 | NUR ---
MDI AND DPI ORDERS CHANGED TO NEBULIZED FORMULA, DUE TO PT UNABLE TO COORDINATE WITH MDI WITH WEAK INSPIRATORY EFFORT GIVEN. AEROGEN PLACED IN ROOM.
[2020-05-25 05:04] LABS: BUN/Creatinine Ratio 32.2; Calcium 8.7 mg/dL (8.5-10.1)
[2020-05-25 05:08] LABS: Potassium 2.9 mmol/L (3.5-5.1)
[2020-05-25] MEDS: PIPERACILLIN-TAZOB 2.25GM 50 ML IV SCH ×5 (05:45→23:48)
--- NOTE | 2020-05-25 05:54 | NUR ---
HOLDING LASIX DUE TO LOW BP AND NEW LAB POTASSIUM OF 2.9
[2020-05-25] MEDS: FUROSEMIDE 20 MG/2 ML VIAL IV SCH ×2 (05:55→17:47)
[2020-05-25] MEDS: INSULIN NPH Isophane (HUMAN) 1unit/0.01ml Susp(100units/ml) SC SCH (05:56)
[2020-05-25] MEDS: GABAPENTIN 100 MG CAP PO SCH ×3 (05:57→23:47)
[2020-05-25] MEDS: IPRATROPIUM BROM 0.5 MG/2.5ML INH SOL NEB SCH ×2 (06:30→14:43)
[2020-05-25] MEDS: ALBUTEROL SULF 2.5 MG/0.5ML(0.5%) NEB SOLN NEB SCH ×2 (06:30→14:43)
--- NOTE | 2020-05-25 06:36 | NUR ---
CALLED CHANDU GUZMÁN TO REPORT A POTASSIUM OF 2.9. RECEIVED AN ORDER FOR POTASSIUM 40 MEQ PO
[2020-05-25] MEDS ORDERED: POTASSIUM CHL 20 Meq TABLET PO ONE (06:45)
--- NOTE | 2020-05-25 07:45 | NUR ---
OPENING NOTE ASSUMED CARE OF PATIENT AT THIS TIME. REPORT RECEIVED FROM YOLANDE RN. POC REVIEWED. PT LAYING ON RIGHT SIDE. HEAD TO TOE ASSESSMENT COMPLETE, SEE INTERVENTION SPREADSHEET FOR COMPLETE DETAILS. RECEIVED PT ALERT AND ORIENTED ON COVID PRECAUTION. RECEIVED PT ON HIGH FLOW 60L 02, FI02 90. PT SATING 87%. PT DENIES PAIN. IV RIGHT AC 20G RUNNING ZOSYN @ 16.6ML/HR, LEFT WRIST 22G SALINE FLUSH AND LOCKED. BED IN LOWEST LOCKED POSITION. SAFETY PRECAUTIONS IN PLACE AND CALL LIGHT WITHIN REACH.
[2020-05-25] MEDS: LOSARTAN POTASSIUM 50 MG TAB PO SCH (10:00)
[2020-05-25] MEDS: HCTZ 25 MG TAB PO SCH (10:00)
[2020-05-25 10:01] LABS: Calcium 8.3 mg/dL (8.5-10.1); Potassium 3.3 mmol/L (3.5-5.1)
[2020-05-25 10:03] LABS: BUN/Creatinine Ratio 30.5
[2020-05-25] MEDS: ASCORBIC ACID 1,000 MG TAB PO SCH (10:04)
[2020-05-25] MEDS: ENOXAPARIN SOD 60 MG/0.6 ML SYRINGE SC SCH (10:04)
[2020-05-25] MEDS: DexAMETHasone SOD PHOS 10MG/1ML VIAL INJ IV SCH (10:04)
[2020-05-25] MEDS: CHOLECALCIFEROL (VITD3) 2,000 UNIT CAP PO SCH (10:04)
[2020-05-25] MEDS: ZINC SULFATE 220mg CAP or TAB PO SCH (10:05)
--- NOTE | 2020-05-25 11:29 | NUR ---
MD ROUNDING DR. BARR GAVE VERBAL ORDERS TO GIVE POTASSIUM 40 MCG IV, AND 50 MCG PO. REQUESTED TO HAVE FIO2 DECREASED TO 80. RESPIRATORY PAGED.
[2020-05-25] MEDS ORDERED: POTASSIUM EFFERVESENT TAB 25 MEQ PO ONE (11:30)
[2020-05-25] MEDS ORDERED: POTASSIUM CHLORIDE 40 MEQ, LIDOCAINE 1% (LOCAL ANESTH.) 4 ML in SODIUM CHL 0.9% 250 ML IV ONE (11:30)
--- NOTE | 2020-05-25 14:50 | NUR ---
RESPIRATORY PT AT FiO2 @ 100, AFTER ATTEMPTING TO DECREASE FiO2 ALL DAY. PT DESATED TO LOW 80'S, RN REPOSITIONED PT TO PRONE AND SATURATION CAME UP TO 90%. Addendum: 05/25/20 at 1854 by RAY LYLES RN RN RESPIRATORY PT AT FiO2 @ 100, AFTER ATTEMPTING TO DECREASE FiO2 ALL DAY. PT DESATED TO LOW 80'S, RN REPOSITIONED PT TO PRONE AND SATURATION CAME UP TO 90%.
--- NOTE | 2020-05-25 16:09 | NUR ---
assessment Patient is a 80 year old female who is in [facility] covid positive. Per patients daughter Moira prior to admission patient lived home with family and was independent. Patient has a fww and a cane for home use. Patients PCP is Dr Alessandra Vega. Patient has no advanced directive or POA. Patients family member was diagnosed positive covid. Per Moira once patient came down with fever and was not acting like herself she brought patient to ER for treatment and was diagnosed positive for Covid. I informed Moira I will continue to monitor and follow up as appropriate for any post discharge needs. Moira verbalized understanding. Addendum: 05/25/20 at 1612 by Brenda NARVAEZ Amended: Links added.
--- NOTE | 2020-05-25 17:40 | NUR ---
FAMILY T/C. SPOKE WITH GRANDDAUGHTER GAURI. UPDATED ON POC AND ANSWERED ALL QUESTIONS.
[2020-05-25] MEDS: REMDESIVIR 100mg in NS 230ml DAILYx4DAYS (NO VENT) IV SCH (17:42)
--- NOTE | 2020-05-25 18:54 | NUR ---
CLOSING NOTE PATIENT AWAKE AND ALERT X4. PT ON HIGH FLOW O2 WITH FiO2 @ 100 AND 60L/MIN. PT SATING @ 96% WITH NO DISTRESS NOTED. PT DENIES PAIN AT THIS TIME. HR 76, R 12, B/P 130/69. ZOSYN RUNNING AT 16.6ML/HR. BED IN LOWEST LOCKED POSITION, SAFETY PRECAUTIONS IN PLACE AND CALL LIGHT WITHIN REACH.
--- NOTE | 2020-05-25 19:40 | NUR ---
REPORT RECEIVED AND ASSUMED CARE; SEE INTERVENTIONS FOR ASSESSMENT; VS STABLE AT THIS TIME WITH PT. ON HI-FLOW 60L AND 100% FIO2; PT. ON NS AT TKO WITH ANTIBIOTICS; PT. ASKING TO GET UP TO BEDSIDE COMMODE; PT. NEEDED MINIMAL ASSISTANCE; PT. HAD BM-BROWN, FORMED, SOFT, AND MODERATE; PT. ALSO URINATED-MODERATE; PT. ABLE TO CLEAN SELF; PT. TOLERATED FAIR-WITH SATS DROPPED TO 85%, BUT PT. RECOVERED WELL TO 94%; REPOSITIONED PT. FOR COMFORT; WILL CONT. TO MONITOR.
[2020-05-25] MEDS: ATORVASTATIN 20 MG TAB PO SCH (23:47)
[2020-05-26] VITALS (15 sets, daily range): BP systolic 79–145; BP diastolic 40–75
[2020-05-26 03:26] LABS: Basophils # (auto) 0 10 ^3/uL (0-0.2); Eosinophils # (auto) 0 10 ^3/uL (0-0.8); Hemoglobin 11.9 g/dL (12.2-16.2); Lymphocytes # (auto) 0.6 10 ^3/uL (0.4-5.4); Lymphocytes % (auto) 6.9 % (10.0-50.0); Mean Corpuscular Hemoglobin 29.7 pg (28.0-32.0); Monocytes # (auto) 0.5 10 ^3/uL (0-1.3); Monocytes % (auto) 5.5 % (0.0-12.0); Neutrophils # (auto) 7.3 10 ^3/uL (1.6-8.6); Neutrophils % (auto) 87.6 % (37.0-80.0); Platelet Count (auto) 204 10^3/uL (140-450); White Blood Cell 8.3 10^3/uL (4.4-10.8)
[2020-05-26 03:55] LABS: Albumin 2.1 g/dL (3.4-5.0); BUN/Creatinine Ratio 32.2; Bilirubin, Total 0.4 mg/dL (0.2-1.0); CRP High Sensitivity 3.29 mg/dL (< 0.3); Calcium 8.1 mg/dL (8.5-10.1); Potassium 3.9 mmol/L (3.5-5.1); Total Protein 5.8 g/dL (6.4-8.2)
[2020-05-26] MEDS: PIPERACILLIN-TAZOB 2.25GM 50 ML IV SCH ×3 (06:00→17:37)
[2020-05-26] MEDS: ACCU-CHEK COMFORT CURVE STRIP VI SCH ×5 (06:05→19:57)
[2020-05-26] MEDS: InsuLIN REG 1unit/0.01ml Soln (100units/ml) SC SCH ×5 (06:10→20:00)
[2020-05-26] MEDS: GABAPENTIN 100 MG CAP PO SCH ×3 (06:10→21:38)
[2020-05-26] MEDS: FUROSEMIDE 20 MG/2 ML VIAL IV SCH (06:10)
--- NOTE | 2020-05-26 06:42 | NUR ---
PT. WAS UP TO BEDSIDE COMMODE AT 0530 AND SATS ARE 81-85%; PT. JUST GIVEN LASIX 20MG IVP AT 0610; PLACED 16 FR. VIDAL CATHETER TO MEASURE ACCURATE OUTPUT, WELL REST PATIENT; WILL CONT. TO MONITOR; VIDAL PLACED IN X1 ATTEMPT, AND PATIENT TOLERATED WELL.
[2020-05-26] MEDS: ALBUTEROL SULF 2.5 MG/0.5ML(0.5%) NEB SOLN NEB SCH ×3 (06:44→22:42)
[2020-05-26] MEDS: IPRATROPIUM BROM 0.5 MG/2.5ML INH SOL NEB SCH ×3 (06:44→22:42)
[2020-05-26] MEDS: INSULIN NPH Isophane (HUMAN) 1unit/0.01ml Susp(100units/ml) SC SCH ×2 (06:49→14:30)
[2020-05-26] MEDS: HCTZ 25 MG TAB PO SCH (08:33)
[2020-05-26] MEDS: ENOXAPARIN SOD 60 MG/0.6 ML SYRINGE SC SCH (08:33)
[2020-05-26] MEDS: ASCORBIC ACID 1,000 MG TAB PO SCH (08:34)
[2020-05-26] MEDS: POTASSIUM CHL 20 Meq TABLET PO SCH (08:34)
[2020-05-26] MEDS: CHOLECALCIFEROL (VITD3) 2,000 UNIT CAP PO SCH (08:34)
[2020-05-26] MEDS: LOSARTAN POTASSIUM 50 MG TAB PO SCH (08:35)
[2020-05-26] MEDS: ZINC SULFATE 220mg CAP or TAB PO SCH (08:35)
[2020-05-26] MEDS: DexAMETHasone SOD PHOS 10MG/1ML VIAL INJ IV SCH (08:35)
--- NOTE | 2020-05-26 11:14 | NUR ---
DR BARR AT BEDSIDE DR DECREASED FIO2 TO 90%. WILL MAKE RT AWARE.
--- NOTE | 2020-05-26 12:30 | NUR ---
Nutrition Assessment Notes Please refer to link for full assessment notes. Est Energy needs: 3730-0601 kcals (30-35 kcal/kgBW) d/t pt with [facility] Est Protein needs: 48-52 gms/day (0.8-0.9 gm/kgBW) d/t pt with CK[facility] Will continue to monitor and reassess prn. Addendum: 05/26/20 at [address] Amended: Links added.
[2020-05-26] MEDS: REMDESIVIR 100mg in NS 230ml DAILYx4DAYS (NO VENT) IV SCH (16:27)
--- NOTE | 2020-05-26 16:44 | NUR ---
Family updated on pt status Family of FERDINAND DEGROOT updated on patient's status and condition. All questions and concerns addressed. Daughter Moira verbalized understanding.
--- NOTE | 2020-05-26 19:10 | NUR ---
Opening Shift Note Received Shift report and assumed care of patient, awake and alert. currently on HF 60L @ 90% FIO@ patient is resting quietly in bed with oxygen saturation of 90%
--- NOTE | 2020-05-26 19:45 | NUR ---
Patient Update Patient friend Iva called, no password, patient sleeping at the time, informed friend that I would pass the message that she called.
--- NOTE | 2020-05-26 21:35 | NUR ---
Patient Proning Patient requesting to change position to prone, assisted patient to approx 3/4 prone position patient made comfortable with oxygen sat of 98% on HF NC 60L @90% FIO2
[2020-05-26] MEDS: ATORVASTATIN 20 MG TAB PO SCH (21:37)
[2020-05-27] VITALS (10 sets, daily range): BP systolic 97–139; BP diastolic 47–69
--- NOTE | 2020-05-27 00:19 | NUR ---
Patient rounding Patient resting quietly in bed in a semi prone position no s/s of distress at this time patient remains on HF NC 60L @ 90% FIO2 with oxygen sat of 96%
[2020-05-27] MEDS: PIPERACILLIN-TAZOB 2.25GM 50 ML IV SCH ×3 (00:21→11:44)
[2020-05-27] MEDS: InsuLIN REG 1unit/0.01ml Soln (100units/ml) SC SCH ×7 (00:22→23:19)
[2020-05-27] MEDS: ACCU-CHEK COMFORT CURVE STRIP VI SCH ×7 (00:22→23:30)
--- NOTE | 2020-05-27 02:22 | NUR ---
Patient rounding Patient resting quietly in bed at this time. in partial prone position with o2 sat of 99%
--- NOTE | 2020-05-27 03:12 | NUR ---
Lab at bedside
[2020-05-27 04:26] LABS: Basophils # (auto) 0.1 10 ^3/uL (0-0.2); Basophils % (auto) 1.1 % (0.0-2.0); Eosinophils # (auto) 0 10 ^3/uL (0-0.8); Hematocrit 39.7 % (36.0-46.0); Hemoglobin 13.3 g/dL (12.2-16.2); Lymphocytes # (auto) 0.8 10 ^3/uL (0.4-5.4); Lymphocytes % (auto) 7.3 % (10.0-50.0); Mean Corpuscular Hemoglobin 30.2 pg (28.0-32.0); Mean Corpuscular Hgb Conc. 33.5 g/dL (32.0-36.0); Mean Corpuscular Volume 90.1 fL (80.0-100.0); Monocytes # (auto) 0.4 10 ^3/uL (0-1.3); Neutrophils # (auto) 9.1 10 ^3/uL (1.6-8.6); Neutrophils % (auto) 87.6 % (37.0-80.0); Platelet Count (auto) 229 10^3/uL (140-450); Red Blood Cells 4.41 10^6/uL (4.0-5.20); Red Cell Distribution Width 14.2 % (11.8-14.3); White Blood Cell 10.4 10^3/uL (4.4-10.8)
[2020-05-27 04:59] LABS: Albumin 2.2 g/dL (3.4-5.0); BUN/Creatinine Ratio 36.8; Bilirubin, Total 0.5 mg/dL (0.2-1.0); Calcium 8.6 mg/dL (8.5-10.1); Potassium 3.7 mmol/L (3.5-5.1); Total Protein 6.6 g/dL (6.4-8.2)
--- NOTE | 2020-05-27 05:00 | NUR ---
Insulin Held Patient insulin held due to Blood Sugar of 94
[2020-05-27] MEDS: ALBUTEROL SULF 2.5 MG/0.5ML(0.5%) NEB SOLN NEB SCH ×3 (06:02→22:00)
[2020-05-27] MEDS: IPRATROPIUM BROM 0.5 MG/2.5ML INH SOL NEB SCH ×3 (06:02→22:00)
[2020-05-27] MEDS: GABAPENTIN 100 MG CAP PO SCH ×3 (06:20→21:01)
--- NOTE | 2020-05-27 07:42 | NUR ---
REPORT REPORT RECEIVED FROM TERRELL RNSTEPHY. PT IN ISOLATION FOR + COVID. VIEWED PT THROUGH THE GLASS DOORS AND NO DISTRESS NOTED. CONTINUE TO MONITOR.
--- NOTE | 2020-05-27 07:42 | NUR ---
Shift End Note Provided shift report to Neeru MCCRACKEN and endorsed care
[2020-05-27] MEDS: INSULIN NPH Isophane (HUMAN) 1unit/0.01ml Susp(100units/ml) SC SCH (08:35)
--- NOTE | 2020-05-27 08:35 | NUR ---
ASSESSMENT IN ISOLATION FOR + COVID. PT RESTING IN BED WITH EYES CLOSED. OPENS EYES WHEN NAME CALLED AND A/O X4. ABLE TO FOLLOW SIMPLE COMMANDS. LUNGS DIMINISHED THROUGHOUT AND WITH INSPIRATORY WHEEZES THROUGHOUT WELL. ON HIGH FLOW O2 AT 90% FIO2 WITH A 60L FLOW. O2 SAT OF 94% WITH PT AT REST. TELE SR 71. PALPABLE PULSES TO ALL EXTREMITIES. NO EDEMA NOTED. ABD SOFT WITH HYPOACTIVE BOWEL SOUNDS. LAST BM WAS EARLIER THIS MORNING. VIDAL CATHETER DRAINING CLEAR YELLOW URINE. TURNED TO CHECK SKIN AND SKIN IS INTACT EXCEPT FOR BRUISING NOTED TO HER ABDOMEN AND LEFT HIP. PT DENIES ANY PAIN. ACCUCHECK OF 112 AND CONTINUED TO HOLD 30 UNITS OF NPH THAT WAS SCHEDULED FOR 0700 AND WAS ALSO HELD BY NIGHT RN PT'S BLOOD SUGAR WAS 95 AT 0400. PT DENIES ANY PAIN. SERVED BREAKFAST. CONTINUE TO MONITOR.
[2020-05-27] MEDS: POTASSIUM CHL 20 Meq TABLET PO SCH (10:24)
[2020-05-27] MEDS: ASCORBIC ACID 1,000 MG TAB PO SCH (10:24)
[2020-05-27] MEDS: ZINC SULFATE 220mg CAP or TAB PO SCH (10:24)
[2020-05-27] MEDS: CHOLECALCIFEROL (VITD3) 2,000 UNIT CAP PO SCH (10:25)
[2020-05-27] MEDS: HCTZ 25 MG TAB PO SCH (10:26)
--- NOTE | 2020-05-27 10:30 | NUR ---
PT GIVEN SCHEDULED MEDS. ASSISTED WITH REPOSITIONING.
--- NOTE | 2020-05-27 11:00 | NUR ---
MD VISIT PT SEEN AND EXAMINED BY DR ROWLAND. UPDATED HIM ON THE PT' CURRENT CONDITION.
[2020-05-27] MEDS: DexAMETHasone SOD PHOS 10MG/1ML VIAL INJ IV SCH (11:44)
[2020-05-27] MEDS: LOSARTAN POTASSIUM 50 MG TAB PO SCH (11:44)
[2020-05-27] MEDS: ENOXAPARIN SOD 60 MG/0.6 ML SYRINGE SC SCH (11:44)
--- NOTE | 2020-05-27 12:30 | NUR ---
PT REASSESSED AND TURNED TO HER RIGHT SIDE. ACCUCHECK OF 254 AND PT GIVEN 9 UNITS OF REGULAR INSULIN SQ. Addendum: 05/27/20 at 1343 by Neeru Doan RN ATE ON LY THE FRUIT FROM HER LUNCH TRAY.
--- NOTE | 2020-05-27 13:00 | NUR ---
DROPPING O2 SATURATION. PT RESTING WITH EYES CLOSED. O2 SAT WITH POOR WAVEFORM AND SAT READING OF 79%. INTO ROOM AND APPLIED A NEW PULSE OX TO HER HAND AND O2 SAT READING IS 77%. INCREASED FIO2 TO 100% AND PAGED FOR RT YOLANDA. PT WAS LAYING ON HER RIGHT SIDE AND SO ROTATED PT TO HER LEFT SIDE WITH LITTLE TO NO IMPROVEMENT IN O2 SATURATION. INCREASED FLOW TO 70L. RT YOLANDA , IN TO ASSIST AND WE TURNED THE PT PRONE. O2 SATS UP TO 95%. INSTRUCTED PT THAT SHE NEEDS TO STAY IN THAT POSITION FOR A COUPLE OF HOURS TO HELP KEEP HER O2 LEVEL UP. SHE AGREES.
--- NOTE | 2020-05-27 14:50 | NUR ---
PT REMIANS IN A PRONE POSITION AND VS: 92-38-97% AND 112/56. PT ON HIGH FLOW O2 AT 100% FIO2 AND 70L FLOW.
[2020-05-27] MEDS: REMDESIVIR 100mg in NS 230ml DAILYx4DAYS (NO VENT) IV SCH (16:46)
--- NOTE | 2020-05-27 18:15 | NUR ---
PT ON HER LEFT SIDE AND EATING HER DINNER. O2 SATS 88-89%. CONTINUE TO MONITOR.
--- NOTE | 2020-05-27 19:00 | NUR ---
PT'S O2 SATS DOWN TO 82% AND WITH ASSISTANCE OF KAYKAY FERNANDEZ, WE ASSISTED THE PT TO GO INTO A PRONE POSITION. O2 SATS UP TO 95%. CONTINUE TO MONITOR.
--- NOTE | 2020-05-27 19:15 | NUR ---
SHIFT OPEN NOTE RECEIVED REPORT AND ASSUMED CARE OF PATIENT AT THIS TIME. REPORT RECEIVED FROM AM RN. POC REVIEWED. RECEIVED PT ALERT AND ORIENTED ON COVID PRECAUTION. RECEIVED PT ON HIGH FLOW 70L 02, FI02 100%. PT PRONING WITH O2 SATING 99%. PT DENIES PAIN. 2O g TO RAC RUNNING NS TKO @5ML/HR AND 20G L-WRIST SL. VIDAL PATENT AND DRAINING TO GRAVITY , YELLOW CLEAR URINE BED IN LOWEST LOCKED POSITION. SAFETY PRECAUTIONS IN PLACE AND CALL LIGHT WITHIN REACH.
--- NOTE | 2020-05-27 19:30 | NUR ---
REPORT REPORT GIVEN TO STEPHY TEJADA RN.
[2020-05-27] MEDS: ATORVASTATIN 20 MG TAB PO SCH (21:00)
[2020-05-27] MEDS: DOXYCYCLINE 100 MG TAB/CAP PO SCH (21:01)
--- NOTE | 2020-05-27 22:30 | NUR ---
Patient repositioned, While repositioning provided patient with a partal linen change CHG wipe bath including liao care and swetha-area care. patient tolerated process with moderated distress.
[2020-05-28] VITALS (11 sets, daily range): BP systolic 108–145; BP diastolic 43–71
--- NOTE | 2020-05-28 00:12 | NUR ---
Lead Replacement Patient off Telemetry all leads replaced patient repositioned in bed from Prone position to left Side, patient tolerated process with moderated distress patient current O2 Sat is 88% on HF NC 70L @ 100% FIO2
--- NOTE | 2020-05-28 01:56 | NUR ---
Patient removed IV While assisting patient with repositioning patient IV canula found with in the bedding patient inadvertently removed Left wrist 20G IV site shows no s/s of injury no redness or swelling patient unaware that IV was out.
[2020-05-28] MEDS: ACCU-CHEK COMFORT CURVE STRIP VI SCH ×4 (04:03→21:47)
[2020-05-28] MEDS: InsuLIN REG 1unit/0.01ml Soln (100units/ml) SC SCH ×6 (04:25→21:49)
[2020-05-28] MEDS: IPRATROPIUM BROM 0.5 MG/2.5ML INH SOL NEB SCH ×3 (06:43→18:39)
[2020-05-28] MEDS: ALBUTEROL SULF 2.5 MG/0.5ML(0.5%) NEB SOLN NEB SCH ×3 (06:43→18:39)
[2020-05-28] MEDS: GABAPENTIN 100 MG CAP PO SCH ×3 (06:51→21:46)
[2020-05-28] MEDS: INSULIN NPH Isophane (HUMAN) 1unit/0.01ml Susp(100units/ml) SC SCH (06:52)
--- NOTE | 2020-05-28 07:00 | NUR ---
Report from Gwen MCCRACKEN Patient asleep in bed, on left side. Patient on high flow 70L/ 100% FIO2 with no obvious signs of distress and RR of 21. Patient afebrile 97.9 F during p.m. shift, in NSR with HR 60's while sleeping and up to systolic 110's while awake. Patient has decreased hunger and has been drinking ice chips with assistance bedside. BSC Q4hrs last 0600 156, 30u given. Briggs catheter to gravity, clear yellow urine. Skin intact, other than bruises abdominally d/t lovenox. Patient has one IV access right 20g AC.
--- NOTE | 2020-05-28 07:00 | NUR ---
Shift END Note Will provide report and endorse care patient remained stable with elevated glucose levels though out the shift oxygen saturation remained in the upper 90's through out the shifts.
--- NOTE | 2020-05-28 07:50 | NUR ---
RN bedside Patient experiencing low SPO2 of 70's. RN bedside for repositioning, new oximeter placed, no change. Patient has productive cough while repositioning states she cannot feel airflow through her nasal congestion. RN placed non rebreather on patient and saturations went to 85-90%. Patient teaching regarding side lying and proning. Even on non rebreather and high flow patient RR high 20's. Will discuss with RT possibility of bipap and ABG.
[2020-05-28] MEDS: cefTRIAXone 1GM/50ML D5W 50 ML IV SCH (09:02)
--- NOTE | 2020-05-28 09:11 | NUR ---
Daughter Called and stated that she spoke with patient this morning patient felt off and discouraged, unlike her baseline status. All question answered, family teaching regarding plan of care and wishes from family. Daughter clearly states all measures including intubation are their wishes.
--- NOTE | 2020-05-28 09:17 | NUR ---
RT bedside Updated RT on patient need for non rebreather and nasal congestion. RT agrees to leave non rebreather on at this time and when he rounds again will assess humidity for nasal congestion and/or possible change to non rebreather or bipap. Patient alseep SPO2 93%, RR 30.
--- NOTE | 2020-05-28 09:57 | NUR ---
Dr. Jhaveri bedside Updated on status respiratory status. No new orders.
[2020-05-28] MEDS: DexAMETHasone SOD PHOS 10MG/1ML VIAL INJ IV SCH (10:00)
[2020-05-28] MEDS: LOSARTAN POTASSIUM 50 MG TAB PO SCH (10:00)
[2020-05-28] MEDS: DOXYCYCLINE 100 MG TAB/CAP PO SCH ×2 (10:00→21:47)
[2020-05-28] MEDS: CHOLECALCIFEROL (VITD3) 2,000 UNIT CAP PO SCH (10:00)
--- NOTE | 2020-05-28 10:15 | NUR ---
RN bedside Patient on non rebreather and high flow, SPO2 maintaining at 89%. Patient is on right side and in no signs of respiratory distress.
[2020-05-28] MEDS: ENOXAPARIN SOD 60 MG/0.6 ML SYRINGE SC SCH (11:46)
[2020-05-28] MEDS: ZINC SULFATE 220mg CAP or TAB PO SCH (11:46)
[2020-05-28] MEDS: POTASSIUM CHL 20 Meq TABLET PO SCH (11:46)
[2020-05-28] MEDS: HCTZ 25 MG TAB PO SCH (11:46)
[2020-05-28] MEDS: ASCORBIC ACID 1,000 MG TAB PO SCH (11:47)
--- NOTE | 2020-05-28 12:10 | NUR ---
RN bedside Patient on high flow and non rebreather, SPO2 is 92% patient RR 28. Oral care completed, assist with turning and bedding.
--- NOTE | 2020-05-28 13:55 | NUR ---
RN bedside Patient remains on left side, patient encouraged to turn to right side to assist with skin integrity. Patient on high flow and non rebreather. Oral care completed.
[2020-05-28] MEDS ORDERED: InsuLIN REG 1unit/0.01ml Soln (100units/ml) SC SCH (14:00)
--- NOTE | 2020-05-28 14:29 | NUR ---
RN bedside Patient up to bedpan. Patient still on high flow and non rebreather. Patient is able to maintain SPO2 90% supine with both support.
--- NOTE | 2020-05-28 19:00 | NUR ---
Report to Zainab MCCRACKEN
--- NOTE | 2020-05-28 20:00 | NUR ---
SHIFT OPENING NOTE RECEIVED PATIENT AWAKE, ALERT AND ORIENTED X4. NO DISTRESS OR PAIN NOTED. ON HIGH FLOW NASAL CANNULA 70L, 100% FI02 WITH 15L NONREBREATHER. POX 91%. VIDAL CATH DRAINING YELLOW URINE TO GRAVITY. PHYSICAL ASSESSMENT COMPLETED, SEE INTERVENTIONS. INSTRUCTED ON POC AND TO CALL FOR ASSIST NEEDED. BED IS IN THE LOWEST POSITION WITH SIDE RAILS UP X2, CALL LIGHT IS WITHIN REACH.
[2020-05-28] MEDS: ATORVASTATIN 20 MG TAB PO SCH (21:46)
[2020-05-28] MEDS: ENOXAPARIN SOD 40 MG/0.4 ML SYRINGE SC SCH (21:47)
[2020-05-28] MEDS: INSULIN 70/30 1unit/0.01ml Susp (100units/ml) SC SCH (21:48)
[2020-05-29] VITALS (12 sets, daily range): BP systolic 111–159; BP diastolic 58–86
--- NOTE | 2020-05-29 02:00 | NUR ---
ROUNDS PATIENT IS QUIETLY LAYING IN BED SLEEPING. NO SOB, DISTRESS OR PAIN NOTED. REMAINS OF HF AND NRB SAME SETTINGS. POX 95%. WILL CONTINUE TO CLOSELY MONITOR.
[2020-05-29 04:06] LABS: Basophils # (auto) 0 10 ^3/uL (0-0.2); Basophils % (auto) 0.2 % (0.0-2.0); Eosinophils # (auto) 0 10 ^3/uL (0-0.8); Hematocrit 37.1 % (36.0-46.0); Hemoglobin 12.1 g/dL (12.2-16.2); Lymphocytes # (auto) 0.3 10 ^3/uL (0.4-5.4); Lymphocytes % (auto) 2.7 % (10.0-50.0); Mean Corpuscular Hemoglobin 29.8 pg (28.0-32.0); Mean Corpuscular Hgb Conc. 32.6 g/dL (32.0-36.0); Mean Corpuscular Volume 91.4 fL (80.0-100.0); Monocytes # (auto) 0.3 10 ^3/uL (0-1.3); Monocytes % (auto) 2.8 % (0.0-12.0); Neutrophils # (auto) 8.8 10 ^3/uL (1.6-8.6); Neutrophils % (auto) 94.3 % (37.0-80.0); Platelet Count (auto) 279 10^3/uL (140-450); Red Blood Cells 4.05 10^6/uL (4.0-5.20); Red Cell Distribution Width 14.1 % (11.8-14.3); White Blood Cell 9.3 10^3/uL (4.4-10.8)
[2020-05-29 04:29] LABS: Albumin 1.9 g/dL (3.4-5.0); Calcium 8.5 mg/dL (8.5-10.1); Potassium 4.2 mmol/L (3.5-5.1)
[2020-05-29 04:36] LABS: Bilirubin, Total 0.4 mg/dL (0.2-1.0); CRP High Sensitivity 14.5 mg/dL (< 0.3); Total Protein 6.1 g/dL (6.4-8.2)
[2020-05-29] MEDS: InsuLIN REG 1unit/0.01ml Soln (100units/ml) SC SCH ×3 (06:16→21:32)
[2020-05-29] MEDS: ACCU-CHEK COMFORT CURVE STRIP VI SCH ×3 (06:16→21:32)
[2020-05-29] MEDS: GABAPENTIN 100 MG CAP PO SCH ×3 (06:16→21:31)
[2020-05-29] MEDS: IPRATROPIUM BROM 0.5 MG/2.5ML INH SOL NEB SCH ×3 (06:29→22:38)
[2020-05-29] MEDS: ALBUTEROL SULF 2.5 MG/0.5ML(0.5%) NEB SOLN NEB SCH ×3 (06:29→22:38)
--- NOTE | 2020-05-29 06:29 | NUR ---
Respiratory note: RECEIVED PT FROM DIRECT MARKETING REPRESENTATIVE ON HFNC, WITH NASAL PRONGS IN PLACE. NO REDNESS/SKIN BREAK DOWN NOTED. WATER CHANGED, AND LEVEL ADEQUATE. MEDNEB TX GIVEN INLINE VIA AEROGEN. NO ADVERSE EFFECTS NOTED. BS ARE CLEAR/DIMINISHED BILATERALLY. DECREASED FLOW TO 60L, AND TITRATED FIO2 TO 90%. PT TOLERATED CHANGE WELL. NO OTHER CHANGES MADE/ORDERED AT THIS TIME. WILL CONTINUE TO MONITOR PT. CHARTING COMPLETE FROM OUTSIDE OF PT ROOM PER COVID-19 PRECAUTIONS/PROTOCOL.
--- NOTE | 2020-05-29 07:25 | NUR ---
END OF SHIFT REPORT GIVEN AND CARE ENDORSED TO PAYAM MCCRACKEN.
--- NOTE | 2020-05-29 07:35 | NUR ---
OPENING NOTE ASSUMED CARE OF PATIENT AT THIS TIME. REPORT RECEIVED FROM NOC RN. POC REVIEWED. PT LAYING ON LEFT SIDE. HEAD TO TOE ASSESSMENT COMPLETE, SEE INTERVENTION SPREADSHEET FOR COMPLETE DETAILS. RECEIVED PT ALERT AND ORIENTED ON COVID PRECAUTION. RECEIVED PT ON HIGH FLOW 70L 02, FI02 90. PT SATING 92%. PT DENIES PAIN. IV NOT PATENT AND FLUSHING, WILL ATTEMPT NEW IV. REINFORCED USE OF IS AND THE BENEFITS. BED IN LOWEST LOCKED POSITION. SAFETY PRECAUTIONS IN PLACE AND CALL LIGHT WITHIN REACH.
--- NOTE | 2020-05-29 08:20 | NUR ---
FAMILY T/C FROM DAUGHTER MICHELLE. VERIFIED PASSWORD. GAVE PATIENT'S STATUS AND ANSWERED ALL QUESTIONS.
[2020-05-29] MEDS: cefTRIAXone 1GM/50ML D5W 50 ML IV SCH (08:35)
--- NOTE | 2020-05-29 09:45 | NUR ---
MIDLINE MIDLINE PLACED ON DA BY ROLDAN. IV PATENT AND FLUSHES WELL.
--- NOTE | 2020-05-29 10:12 | NUR ---
Midline Placement: Patient educated on need for midline placement. All risks and benefits explained and all questions and concerns addresses prior to procedure. 18g/10 cm midline inserted via RIGHT BRACHIAL vein using Ultrasound. Sterile technique utilized. Blood return obtained from THE SINGLE lumen and flushed easily with NS using proper technique. Midline secured with saline lock; biodisc and occlusive dressing applied. Primary RN PAYAM notified. Midline lot # [id number]
[2020-05-29] MEDS: ZINC SULFATE 220mg CAP or TAB PO SCH (10:20)
[2020-05-29] MEDS: HCTZ 25 MG TAB PO SCH (10:20)
[2020-05-29] MEDS: POTASSIUM CHL 20 Meq TABLET PO SCH (10:20)
[2020-05-29] MEDS: DexAMETHasone SOD PHOS 10MG/1ML VIAL INJ IV SCH (10:20)
[2020-05-29] MEDS: CHOLECALCIFEROL (VITD3) 2,000 UNIT CAP PO SCH (10:20)
[2020-05-29] MEDS: INSULIN 70/30 1unit/0.01ml Susp (100units/ml) SC SCH ×2 (10:20→21:33)
[2020-05-29] MEDS: LOSARTAN POTASSIUM 50 MG TAB PO SCH (10:20)
[2020-05-29] MEDS: ASCORBIC ACID 1,000 MG TAB PO SCH (10:20)
[2020-05-29] MEDS: DOXYCYCLINE 100 MG TAB/CAP PO SCH ×2 (10:20→21:31)
[2020-05-29] MEDS: ENOXAPARIN SOD 40 MG/0.4 ML SYRINGE SC SCH ×2 (10:20→21:32)
--- NOTE | 2020-05-29 12:20 | NUR ---
Nutrition Followup Notes Wt: 57.8 kg Pt`s was sleeping in covid isolation. per RN no distress noted. pt is currently on CCHO 60 gm/meal diet with inadequate PO of 25% x 4 per RN doc Est Energy needs: 7047-4366 kcals (30-35 kcal/kgBW) d/t pt with CKF, Est Protein needs: 48-52 gms/day (0.8-0.9 gm/kgBW) d/t pt with CKF. Will continue to monitor and reassess prn. LABS: BUN 49 H CREAT 1.36 H GLU 237 H ALB 1.9 L GI: Pt has no BM reported per RN doc. BS: 16 mod risk. Refer to wound assessment report for further details. PES: Altered nutrition related lab values r.t current chronic medical condition aeb elev RFTs, low GFR, hyperglycemia, elev A1c, hypocalcemia, Comments: Continue to monitor PO intake, labs, skin Will followup in 3-5 days. Rec: 1) Consider Glucerna 1 carton bid if PO is low. 2) If albumin continues trending down with improved RFTs, consider Prostat 1 pkt BID. 3) Continue current plan of care. 2) refer to CDE.
--- NOTE | 2020-05-29 18:33 | NUR ---
CLOSING NOTE PT RESTING IN PRONE POSITION WITH RESPIRATIONS EVEN AND UNLABORED. PT ON HIGH FLOW @ 60L AND FiO2 @ 85%. SATING @ 93% WITH NO DISTRESS NOTED. COMFORT MEASURES IN PLACE. BED IN LOWEST LOCKED POSITION, SAFETY PRECAUTIONS IN PLACE AND CALL LIGHT WITHIN REACH.
--- NOTE | 2020-05-29 20:00 | NUR ---
SHIFT OPENING NOTE RECEIVED PATIENT AWAKE, ALERT AND ORIENTED X4 LAYING IN BED PRONED. NO DISTRESS OR PAIN NOTED. ON HIGH FLOW 60L, 85% FI02. POX 93%. VIDAL CATH DRAINING YELLOW URINE TO GRAVITY. DA MIDLINE SALINE LOCKED. PHYSICAL ASSESSMENT COMPLETED, SEE INTERVENTIONS. INSTRUCTED ON POC AND TO CALL FOR ASSIST NEEDED. BED IS IN THE LOWEST POSITION WITH SIDE RAILS UP X2, CALL LIGHT IS WITHIN REACH.
[2020-05-29] MEDS: ATORVASTATIN 20 MG TAB PO SCH (21:31)
--- NOTE | 2020-05-29 22:00 | NUR ---
BM PLACED ON BEDPAN, PATIENT HAD A MODERATE SIZED BROWN BM. VIVIAN CARE PERFORMED. PARTIAL LINEN CHANGED. PATIENT TOLERATED IT WELL.
[2020-05-30] VITALS (8 sets, daily range): BP systolic 100–154; BP diastolic 59–85
--- NOTE | 2020-05-30 04:00 | NUR ---
ROUNDS PATIENT QUIETLY LAYING IN BED SLEEPING. REMAINS ON HIGH FLOW AND PRONED. VS STABLE. WILL CONTINUE TO CLOSELY MONITOR.
[2020-05-30] MEDS: InsuLIN REG 1unit/0.01ml Soln (100units/ml) SC SCH ×3 (06:00→20:52)
[2020-05-30] MEDS: IPRATROPIUM BROM 0.5 MG/2.5ML INH SOL NEB SCH ×3 (06:07→18:25)
[2020-05-30] MEDS: ACCU-CHEK COMFORT CURVE STRIP VI SCH ×3 (06:07→20:51)
[2020-05-30] MEDS: GABAPENTIN 100 MG CAP PO SCH ×3 (06:07→20:50)
[2020-05-30] MEDS: ALBUTEROL SULF 2.5 MG/0.5ML(0.5%) NEB SOLN NEB SCH ×3 (06:07→18:25)
--- NOTE | 2020-05-30 07:25 | NUR ---
END OF SHIFT REPORT GIVEN AND CARE ENDORSED TO PAYAM MCCRACKEN.
--- NOTE | 2020-05-30 07:45 | NUR ---
OPENING NOTE ASSUMED CARE OF PATIENT AT THIS TIME. REPORT RECEIVED FROM YOLANDE RN. POC REVIEWED. PT LAYING ON LEFT SIDE. HEAD TO TOE ASSESSMENT COMPLETE, SEE INTERVENTION SPREADSHEET FOR COMPLETE DETAILS. RECEIVED PT ALERT AND ORIENTED ON COVID PRECAUTION. RECEIVED PT ON HIGH FLOW 55L 02, FI02 55%. PT SATING 94%. PT DENIES PAIN. MIDLINE TO DA RUNNING 5ML/HR. REINFORCED USE OF IS AND THE BENEFITS. BED IN LOWEST LOCKED POSITION. SAFETY PRECAUTIONS IN PLACE AND CALL LIGHT WITHIN REACH.
[2020-05-30 08:26] LABS: Basophils # (auto) 0 10 ^3/uL (0-0.2); Basophils % (auto) 0.1 % (0.0-2.0); Eosinophils # (auto) 0 10 ^3/uL (0-0.8); Hematocrit 41.8 % (36.0-46.0); Hemoglobin 13.6 g/dL (12.2-16.2); Lymphocytes # (auto) 0.4 10 ^3/uL (0.4-5.4); Lymphocytes % (auto) 3.6 % (10.0-50.0); Mean Corpuscular Hemoglobin 29.3 pg (28.0-32.0); Mean Corpuscular Hgb Conc. 32.5 g/dL (32.0-36.0); Mean Corpuscular Volume 90.4 fL (80.0-100.0); Monocytes # (auto) 0.6 10 ^3/uL (0-1.3); Neutrophils # (auto) 11.3 10 ^3/uL (1.6-8.6); Neutrophils % (auto) 91.3 % (37.0-80.0); Platelet Count (auto) 403 10^3/uL (140-450); Red Blood Cells 4.63 10^6/uL (4.0-5.20); Red Cell Distribution Width 14.4 % (11.8-14.3); White Blood Cell 12.4 10^3/uL (4.4-10.8)
[2020-05-30] MEDS: cefTRIAXone 1GM/50ML D5W 50 ML IV SCH (08:37)
[2020-05-30 09:00] LABS: BUN/Creatinine Ratio 40.8; Calcium 9.2 mg/dL (8.5-10.1); Potassium 4.1 mmol/L (3.5-5.1)
[2020-05-30] MEDS: ENOXAPARIN SOD 40 MG/0.4 ML SYRINGE SC SCH ×2 (09:59→20:51)
[2020-05-30] MEDS: DexAMETHasone SOD PHOS 10MG/1ML VIAL INJ IV SCH (09:59)
[2020-05-30] MEDS: CHOLECALCIFEROL (VITD3) 2,000 UNIT CAP PO SCH (10:00)
[2020-05-30] MEDS: HCTZ 25 MG TAB PO SCH ×3 (10:00→14:31)
[2020-05-30] MEDS: POTASSIUM CHL 20 Meq TABLET PO SCH (10:00)
[2020-05-30] MEDS: LOSARTAN POTASSIUM 50 MG TAB PO SCH ×2 (10:00→14:30)
[2020-05-30] MEDS: ASCORBIC ACID 1,000 MG TAB PO SCH (10:01)
[2020-05-30] MEDS: DOXYCYCLINE 100 MG TAB/CAP PO SCH ×2 (10:01→20:51)
[2020-05-30] MEDS: ZINC SULFATE 220mg CAP or TAB PO SCH (10:06)
[2020-05-30] MEDS: INSULIN 70/30 1unit/0.01ml Susp (100units/ml) SC SCH ×2 (10:20→20:52)
--- NOTE | 2020-05-30 13:55 | NUR ---
COMFORT REPOSITIONED PT FOR COMFORT. PT PRONE WITH SAT 93%.
--- NOTE | 2020-05-30 15:22 | NUR ---
ROUNDING RESPIRATIONS EVEN AND UNLABORED. PT IN PRONE POSITION SATING @ 93%. HIGH FLOW AT 60L, AND 100% FiO2.
--- NOTE | 2020-05-30 18:53 | NUR ---
CLOSING NOTE SHIFT REPORT GIVEN TO YOLANDE DUDLEY.
--- NOTE | 2020-05-30 20:00 | NUR ---
SHIFT OPENING NOTE RECEIVED PATIENT AWAKE, ALERT AND ORIENTED X4. NO DISTRESS OR PAIN NOTED. ON HIGH FLOW NASAL CANNULA 70L, 100% FI02 POX 80-91%. ASSISTED PATIENT TO PRONE. VIDAL CATH DRAINING YELLOW URINE TO GRAVITY. PHYSICAL ASSESSMENT COMPLETED, SEE INTERVENTIONS. INSTRUCTED ON POC AND TO CALL FOR ASSIST NEEDED. BED IS IN THE LOWEST POSITION WITH SIDE RAILS UP X2, CALL LIGHT IS WITHIN REACH.
[2020-05-30] MEDS: ATORVASTATIN 20 MG TAB PO SCH (20:50)
[2020-05-31] VITALS (10 sets, daily range): BP systolic 103–146; BP diastolic 67–90
--- NOTE | 2020-05-31 01:15 | NUR ---
MORNING HYGIENE CARE FULL BED BATH PERFORMED WITH WET SOAPY WASH CLOTHES. GOWN CHANGED. FULL LINEN CHANGE. PATIENT REPOSITIONED BACK TO PRONE. TOLERATED IT WELL.
[2020-05-31] MEDS: GABAPENTIN 100 MG CAP PO SCH ×3 (05:22→21:28)
[2020-05-31] MEDS: ACCU-CHEK COMFORT CURVE STRIP VI SCH ×3 (05:22→21:28)
[2020-05-31] MEDS: InsuLIN REG 1unit/0.01ml Soln (100units/ml) SC SCH ×3 (05:24→21:34)
[2020-05-31 05:51] LABS: Basophils # (auto) 0 10 ^3/uL (0-0.2); Basophils % (auto) 0.3 % (0.0-2.0); Eosinophils # (auto) 0 10 ^3/uL (0-0.8); Hematocrit 39.6 % (36.0-46.0); Hemoglobin 12.6 g/dL (12.2-16.2); Lymphocytes # (auto) 0.3 10 ^3/uL (0.4-5.4); Lymphocytes % (auto) 3.1 % (10.0-50.0); Mean Corpuscular Hemoglobin 29.1 pg (28.0-32.0); Mean Corpuscular Hgb Conc. 31.7 g/dL (32.0-36.0); Mean Corpuscular Volume 91.8 fL (80.0-100.0); Monocytes # (auto) 0.4 10 ^3/uL (0-1.3); Monocytes % (auto) 4.2 % (0.0-12.0); Neutrophils # (auto) 9.3 10 ^3/uL (1.6-8.6); Neutrophils % (auto) 92.4 % (37.0-80.0); Nucleated Red Blood Cells % 0.1 %; Platelet Count (auto) 364 10^3/uL (140-450); Red Blood Cells 4.32 10^6/uL (4.0-5.20); Red Cell Distribution Width 14.4 % (11.8-14.3); White Blood Cell 10.1 10^3/uL (4.4-10.8)
[2020-05-31 06:08] LABS: BUN/Creatinine Ratio 42.3; Calcium 8.9 mg/dL (8.5-10.1); Potassium 5.1 mmol/L (3.5-5.1)
[2020-05-31] MEDS: IPRATROPIUM BROM 0.5 MG/2.5ML INH SOL NEB SCH ×3 (06:18→22:27)
[2020-05-31] MEDS: ALBUTEROL SULF 2.5 MG/0.5ML(0.5%) NEB SOLN NEB SCH ×3 (06:18→22:27)
--- NOTE | 2020-05-31 07:15 | NUR ---
END OF SHIFT REPORT GIVEN AND CARE ENDORSED TO SHUKRI MCCRACKEN.
[2020-05-31] MEDS: cefTRIAXone 1GM/50ML D5W 50 ML IV SCH (08:57)
[2020-05-31] MEDS: ZINC SULFATE 220mg CAP or TAB PO SCH (09:44)
[2020-05-31] MEDS: DexAMETHasone SOD PHOS 10MG/1ML VIAL INJ IV SCH (09:44)
[2020-05-31] MEDS: LOSARTAN POTASSIUM 50 MG TAB PO SCH (09:44)
[2020-05-31] MEDS: POTASSIUM CHL 20 Meq TABLET PO SCH (09:46)
[2020-05-31] MEDS: HCTZ 25 MG TAB PO SCH (09:46)
[2020-05-31] MEDS: CHOLECALCIFEROL (VITD3) 2,000 UNIT CAP PO SCH (09:48)
[2020-05-31] MEDS: ENOXAPARIN SOD 40 MG/0.4 ML SYRINGE SC SCH ×2 (09:48→21:28)
[2020-05-31] MEDS: ASCORBIC ACID 1,000 MG TAB PO SCH (09:48)
[2020-05-31] MEDS: DOXYCYCLINE 100 MG TAB/CAP PO SCH ×2 (09:48→21:28)
[2020-05-31] MEDS: INSULIN 70/30 1unit/0.01ml Susp (100units/ml) SC SCH ×2 (09:56→21:33)
--- NOTE | 2020-05-31 10:30 | NUR ---
COMPLETE BED CHANGE PROVIDED SKIN REASSESSED AND NO NEW BREAK DOWN NOTED. PT HAD A LONG PERIOD OF DESATURATION, LOWEST 60-67% SPO2 ON BEDSIDE MONITOR. ON 60L 90% FIO2 HIGH FLOW NASAL CANULA. 1045 PATIENT STATING >90% SPO2
--- NOTE | 2020-05-31 11:02 | NUR ---
MD BARR AT BEDSIDE UPDATED ON PATIENT STATUS. NEW ORDERS RECEIVED
[2020-05-31] MEDS ORDERED: guaiFENesin-DM 100/10mg/5ml SYR PO PRN (12:00)
--- NOTE | 2020-05-31 13:00 | NUR ---
ULTRASOUND OF LOWER EXTREMITIES UNABLE TO COMPLETE ULTRASOUND DUE TO PATIENT DESATURATION <70% SPO2 WHILE SUPINE WITH 60L/90%FIO2 NASAL HIGH FLOW.
--- NOTE | 2020-05-31 20:00 | NUR ---
OPENING NOTE REPORT RECEIVED FROM MARIA G RN. THIS IS A POSITIVE COVID PATIENT ON NOVEL RESPIRATORY ISOLATION. PATIENT IS A/OX4, ABLE TO COMMUNICATE ALL NEEDS. PATIENT IS CONNECTED TO CONTINUOUS BEDSIDE MONITOR, HEART RATE IN 70'S. RECEIVED PATIENT ON HFNC AT 70L, FIO2 100%, SPO2 98%. PATIENT IS LYING IN PRONE POSITION AND TOLERATING WELL. NO SOB OR DISTRESS AT THIS TIME. VIDAL DRAINING YELLOW URINE TO GRAVITY. SKIN ALL INTACT. RIGHT UPPER ARM MIDLINE IN PLACE. POC DISCUSSED WITH PATIENT, ALL QUESTIONS ANSWERED. CALL LIGHT WITHIN REACH.
[2020-05-31] MEDS: ATORVASTATIN 20 MG TAB PO SCH (21:27)
[2020-06-01] VITALS (9 sets, daily range): BP systolic 100–152; BP diastolic 39–76
--- NOTE | 2020-06-01 02:29 | NUR ---
ROUNDS PATIENT STILL IN PRONE POSITION. SPO2 98%, TOLERATING WELL.
[2020-06-01 04:09] LABS: Basophils # (auto) 0 10 ^3/uL (0-0.2); Basophils % (auto) 0.2 % (0.0-2.0); Eosinophils # (auto) 0 10 ^3/uL (0-0.8); Eosinophils % (auto) 0.1 % (0.0-7.0); Hematocrit 39.3 % (36.0-46.0); Hemoglobin 12.7 g/dL (12.2-16.2); Lymphocytes # (auto) 0.6 10 ^3/uL (0.4-5.4); Lymphocytes % (auto) 5.1 % (10.0-50.0); Mean Corpuscular Hemoglobin 29.5 pg (28.0-32.0); Mean Corpuscular Hgb Conc. 32.3 g/dL (32.0-36.0); Mean Corpuscular Volume 91.2 fL (80.0-100.0); Monocytes # (auto) 0.6 10 ^3/uL (0-1.3); Monocytes % (auto) 4.8 % (0.0-12.0); Neutrophils # (auto) 10.6 10 ^3/uL (1.6-8.6); Neutrophils % (auto) 89.8 % (37.0-80.0); Platelet Count (auto) 329 10^3/uL (140-450); Red Blood Cells 4.31 10^6/uL (4.0-5.20); Red Cell Distribution Width 13.7 % (11.8-14.3); White Blood Cell 11.8 10^3/uL (4.4-10.8)
[2020-06-01 05:06] LABS: BUN/Creatinine Ratio 48.6; Potassium 4.8 mmol/L (3.5-5.1)
--- NOTE | 2020-06-01 05:10 | NUR ---
AM CARE PATIENT PROVIDED WITH A PARTIAL LINEN CHANGE. PATIENT UNABLE TO TOLERATE ALL AM CARE, SHE BEGAN TO DESATURATE INTO THE LOW 70'S WHILE TURNING. PATIENT IMMEDIATELY PLACED BACK INTO PRONE POSITION WHERE SHE SLOWLY BEGAN TO RECOVER. ONLY PARTIAL LINEN CHANGE WAS DONE PER PATIENT TOLERANCE.
[2020-06-01] MEDS: IPRATROPIUM BROM 0.5 MG/2.5ML INH SOL NEB SCH ×3 (05:38→19:49)
[2020-06-01] MEDS: ALBUTEROL SULF 2.5 MG/0.5ML(0.5%) NEB SOLN NEB SCH ×3 (05:38→19:49)
[2020-06-01] MEDS: InsuLIN REG 1unit/0.01ml Soln (100units/ml) SC SCH ×3 (06:00→21:25)
[2020-06-01] MEDS: ACCU-CHEK COMFORT CURVE STRIP VI SCH ×3 (06:27→21:25)
[2020-06-01] MEDS: GABAPENTIN 100 MG CAP PO SCH ×3 (06:28→21:26)
--- NOTE | 2020-06-01 06:34 | NUR ---
DESATURATION PATIENT BEGAN TO DESATURATE WHILE DRINKING JUICE AND TAKING HER MORNING GABAPENTIN. ONCE PILL WAS SWALLOWED, PATIENT ENCOURAGED TO PRONE. PATIENT SPO2 SLOWLY RISING WHILE PRONING.
--- NOTE | 2020-06-01 07:30 | NUR ---
CLOSING PATIENT RESTING IN PRONE POSITION, CONNECTED TO CONTINUOUS BEDSIDE MONITORS AND ON HFNC 70L, FIO2 100%. CARE ENDORSED TO DAYSHIFT KAYKAY CANO TO ASSUME CARE OF PATIENT.
--- NOTE | 2020-06-01 09:00 | NUR ---
DESATURATION PATIENT REQUESTED TO EAT BREAKFAST. PATIENT UNABLE TO SIT SUPINE. PATIENT LAID ON LEFT SIDE AND ATE. ATE 100% OF MEAL HOWEVER SATURATIONS DECLINED AND REMAINED HIGH 70S. RESPIRATORY AND RN AT BEDSIDE, NON REBREATHER PLACED OVER HIGHFLOW. PATIENTS SATURATION INCREASED AND PATIENT STOPPED EATING AND PRONED TO IMPROVE OXYGENATION. WILL CONTINUE TO MONITOR CLOSELY. IN VIEW OF NURSES STATION
[2020-06-01] MEDS: cefTRIAXone 1GM/50ML D5W 50 ML IV SCH (09:30)
[2020-06-01] MEDS: ENOXAPARIN SOD 40 MG/0.4 ML SYRINGE SC SCH ×2 (10:00→21:25)
[2020-06-01] MEDS: ZINC SULFATE 220mg CAP or TAB PO SCH (10:00)
[2020-06-01] MEDS: ASCORBIC ACID 1,000 MG TAB PO SCH (10:00)
[2020-06-01] MEDS: HCTZ 25 MG TAB PO SCH (10:00)
[2020-06-01] MEDS: DOXYCYCLINE 100 MG TAB/CAP PO SCH ×2 (10:00→21:26)
[2020-06-01] MEDS: LOSARTAN POTASSIUM 50 MG TAB PO SCH (10:00)
[2020-06-01] MEDS: CHOLECALCIFEROL (VITD3) 2,000 UNIT CAP PO SCH (10:00)
[2020-06-01] MEDS: INSULIN 70/30 1unit/0.01ml Susp (100units/ml) SC SCH ×2 (10:00→21:25)
--- NOTE | 2020-06-01 10:00 | NUR ---
PO MEDS HELD PATIENTS OXYGEN SATURATION LOW. CURRENTLY ON HIGHFLOW AND NONBREATHER. PATIENT PRONED AND SLEEPING. UNSAFE TO ADMINISTER AT THIS TIME
--- NOTE | 2020-06-01 11:15 | NUR ---
DR SUAREZ AT BEDSIDE DISCUSSED PATIENTS STATUS AND PLAN OF CARE. NEW ORDERS PLACED
[2020-06-01] MEDS: DexAMETHasone SOD PHOS 10MG/1ML VIAL INJ IV SCH (11:58)
[2020-06-01] MEDS ORDERED: FUROSEMIDE 40 MG/4 ML VIAL IV ONE (12:00)
--- NOTE | 2020-06-01 14:17 | NUR ---
PATIENTS DAUGHTER MARIAELENA CALLED FOR AN UPDATE PROVIDED PASSWORD. UPDATED ON STATUS AND PLAN OF CARE
[2020-06-01] MEDS ORDERED: SODIUM CHLORIDE 0.9% 1,000 ML IV SCH (16:00)
[2020-06-01] MEDS: FUROSEMIDE 20 MG/2 ML VIAL IV SCH (18:00)
--- NOTE | 2020-06-01 19:04 | NUR ---
Respiratory note: PT PLACED ON BIPAP AT THIS TIME DUE TO LOW SATS. PT REMAINS IN SIDE PRONE POSITION, TOLERATING WELL. ABG IN AM, WILL CONTINUE TO MONITOR.
[2020-06-01] MEDS: ATORVASTATIN 20 MG TAB PO SCH (21:26)
[2020-06-02] VITALS (11 sets, daily range): BP systolic 97–158; BP diastolic 56–86
--- NOTE | 2020-06-02 00:30 | NUR ---
Respiratory note: PROTECT-A GEL PLACED ON PT.
[2020-06-02 03:42] LABS: Calcium 8.8 mg/dL (8.5-10.1); Potassium 4.7 mmol/L (3.5-5.1)
[2020-06-02 03:45] LABS: BUN/Creatinine Ratio 38.6
[2020-06-02] MEDS: ACCU-CHEK COMFORT CURVE STRIP VI SCH ×2 (05:34→18:00)
[2020-06-02] MEDS: FUROSEMIDE 20 MG/2 ML VIAL IV SCH ×2 (05:34→18:05)
[2020-06-02] MEDS: GABAPENTIN 100 MG CAP PO SCH ×3 (05:34→22:18)
[2020-06-02] MEDS: InsuLIN REG 1unit/0.01ml Soln (100units/ml) SC SCH ×4 (05:45→22:21)
[2020-06-02] MEDS: IPRATROPIUM BROM 0.5 MG/2.5ML INH SOL NEB SCH ×3 (06:00→21:31)
[2020-06-02] MEDS: ALBUTEROL SULF 2.5 MG/0.5ML(0.5%) NEB SOLN NEB SCH ×3 (06:00→21:31)
[2020-06-02] MEDS: HCTZ 25 MG TAB PO SCH (10:00)
[2020-06-02] MEDS: cefTRIAXone 1GM/50ML D5W 50 ML IV SCH (10:01)
[2020-06-02] MEDS: CHOLECALCIFEROL (VITD3) 2,000 UNIT CAP PO SCH (11:00)
[2020-06-02] MEDS: LOSARTAN POTASSIUM 50 MG TAB PO SCH (11:00)
[2020-06-02] MEDS: POTASSIUM CHL 20 Meq TABLET PO SCH (11:00)
[2020-06-02] MEDS: ENOXAPARIN SOD 40 MG/0.4 ML SYRINGE SC SCH ×2 (11:00→22:19)
[2020-06-02] MEDS: ZINC SULFATE 220mg CAP or TAB PO SCH (11:00)
[2020-06-02] MEDS: DOXYCYCLINE 100 MG TAB/CAP PO SCH ×2 (11:00→22:18)
[2020-06-02] MEDS: ASCORBIC ACID 1,000 MG TAB PO SCH (11:00)
[2020-06-02] MEDS: DexAMETHasone SOD PHOS 10MG/1ML VIAL INJ IV SCH (11:00)
[2020-06-02] MEDS: INSULIN 70/30 1unit/0.01ml Susp (100units/ml) SC SCH ×2 (11:00→22:20)
[2020-06-02] MEDS ORDERED: BUDESONIDE (INHALATION) 0.5 MG/2 ML NEB NEB ONE (11:45)
--- NOTE | 2020-06-02 12:08 | NUR ---
Nutrition Followup Notes Wt: 58.9 kg Pt was sleeping in COVID isolation. Pt is currently on CCHO 60 gm diet with inadequate PO of 21% x 4 per RN doc. Refer to nutrition recommendations noted below under Comments. Est Energy needs: 3098-9034 kcals (30-35 kcal/kgBW) d/t pt with CKF, Est Protein needs: 48-52 gms/day (0.8-0.9 gm/kgBW) d/t pt with CKF. Will continue to monitor and reassess prn. LABS: BUN 54 H CREAT 1.40 H GLU 212 H ALB 1.9 L GI: Pt had 1 BM reported on 06/01 per RN doc. BS: 17 mod risk. Refer to wound assessment report for further details. PES: Altered nutrition related lab values r.t current chronic medical condition aeb elev RFTs, low GFR, hyperglycemia, elev A1c, hypocalcemia Comments: Continue to monitor PO intake, labs, skin Will followup in 3-5 days. Rec: 1) Consider Glucerna 1 carton bid if PO is low. 2) If albumin continues trending down with improved RFTs, consider Prostat 1 pkt BID. 3) refer to CDE. 4) Continue current plan of care.
--- NOTE | 2020-06-02 13:44 | NUR ---
Resumed care at 0729, orders reviewed and ongoing assessments being done. Being treated for Covid-19 and in isolation per protocol. Upon arrival in bed asleep and on BIPAP. Easily awaken and interacting appropriately. Requires BIPAP continuously and quickly desaturates when removed for oral care, sips of water and medication administration. Dropped as low as 55% when BIPAP removed. Holding all meals due to the need of continuous BIPAP. Reviewed plan of care and at this point she expressed she wants everything done for her. Remains full code. Dr. Galarza rounded at 1130. Discussed condition and plan of care. Dr. Galarza phoned family member Kaylin and left a message.
[2020-06-02] MEDS ORDERED: DEXTROSE (50%) 50ML SYRG IV PRN (13:45)
--- NOTE | 2020-06-02 18:57 | NUR ---
Remains fatigued but continues to make needs known. Remains on BIPAP and unable to remove. Removed only for sips of water and oral care. All meals held due to hypoxic episodes when BIPAP is removed. Continue current plan of care.
--- NOTE | 2020-06-02 19:10 | NUR ---
Opening Shift Note Received report and assumed care of patient, awake and alert and on continuos bipap 12/5 100% FIO2 patient is currently resting in bed on Left side with oxygen sat of 94%
[2020-06-02] MEDS: BUDESONIDE (INHALATION) 0.5 MG/2 ML NEB NEB SCH (21:31)
[2020-06-02] MEDS: ATORVASTATIN 20 MG TAB PO SCH (22:18)
--- NOTE | 2020-06-02 22:30 | NUR ---
MED Pass While administering patient Oral meds patient oxygen saturation dropped to 78 in less than 2 minutes, patient put back on bipap and recovered to 93% O2 Sat.
[2020-06-03] VITALS (12 sets, daily range): BP systolic 111–165; BP diastolic 51–87
--- NOTE | 2020-06-03 02:33 | NUR ---
Patient Rounding Patient resting quietly in bed partial proning, patient shows no s/s of distress at this time patient is on bipap 12/ 100% FIO2
[2020-06-03 04:02] LABS: Albumin 1.9 g/dL (3.4-5.0); Calcium 8.5 mg/dL (8.5-10.1); Magnesium 3.1 mg/dL (1.6-2.6); Potassium 4.4 mmol/L (3.5-5.1)
[2020-06-03 04:06] LABS: BUN/Creatinine Ratio 45.9; Bilirubin, Total 0.4 mg/dL (0.2-1.0); Total Protein 6.2 g/dL (6.4-8.2)
[2020-06-03 04:23] LABS: CRP High Sensitivity 9.39 mg/dL (< 0.3)
[2020-06-03] MEDS: InsuLIN REG 1unit/0.01ml Soln (100units/ml) SC SCH ×5 (05:57→18:00)
[2020-06-03] MEDS: ACCU-CHEK COMFORT CURVE STRIP VI SCH ×4 (05:59→18:14)
[2020-06-03] MEDS: IPRATROPIUM BROM 0.5 MG/2.5ML INH SOL NEB SCH ×3 (06:00→22:50)
[2020-06-03] MEDS: ALBUTEROL SULF 2.5 MG/0.5ML(0.5%) NEB SOLN NEB SCH ×3 (06:00→22:50)
[2020-06-03] MEDS: GABAPENTIN 100 MG CAP PO SCH ×3 (06:00→22:25)
[2020-06-03] MEDS: FUROSEMIDE 20 MG/2 ML VIAL IV SCH ×2 (06:07→18:16)
--- NOTE | 2020-06-03 06:52 | NUR ---
Shift END Note Patient remained stable though out the shift, patient remained on bipap / 100% FIO2 patient self partial Proning on left side, patient removed mask to take sips of water which caused oxygen level to decline to 80% patient morning Gabapentin held due to hypoxia when bipap mask removed.
--- NOTE | 2020-06-03 07:30 | NUR ---
OPENING SHIFT NOTE REPORT RECEIVED FROM MEDICAL PRACTICE ASSISTANT RN, MORNING ASSESSMENT WILL BE PERFORMED. 80 YEAR OLD FEMALE, LAYING IN BED ON LEFT SIDE WITH EYES CLOSED, NO DISTRESS NOTED, RESPIRATIONS EVEN AND UNLABORED, VSS AT THIS TIME. CHART REVIEW AND WILL CONTINUE TO MONITOR.
[2020-06-03 07:32] LABS: Basophils # (auto) 0.1 10 ^3/uL (0-0.2); Basophils % (auto) 0.6 % (0.0-2.0); Eosinophils # (auto) 0 10 ^3/uL (0-0.8); Eosinophils % (auto) 0.1 % (0.0-7.0); Hematocrit 41.8 % (36.0-46.0); Hemoglobin 13.5 g/dL (12.2-16.2); Lymphocytes # (auto) 0.6 10 ^3/uL (0.4-5.4); Lymphocytes % (auto) 4.4 % (10.0-50.0); Mean Corpuscular Hemoglobin 29.3 pg (28.0-32.0); Mean Corpuscular Hgb Conc. 32.2 g/dL (32.0-36.0); Mean Corpuscular Volume 91.1 fL (80.0-100.0); Monocytes # (auto) 0.6 10 ^3/uL (0-1.3); Monocytes % (auto) 4.1 % (0.0-12.0); Neutrophils # (auto) 12.4 10 ^3/uL (1.6-8.6); Neutrophils % (auto) 90.8 % (37.0-80.0); Platelet Count (auto) 309 10^3/uL (140-450); Red Blood Cells 4.59 10^6/uL (4.0-5.20); White Blood Cell 13.6 10^3/uL (4.4-10.8)
--- NOTE | 2020-06-03 08:30 | NUR ---
HOSPITALIST VISITS DR ROWLAND UPDATED ON PATIENT'S STATUS AND LABS. NO VERBAL ORDERS GIVEN AT THIS TIME.
--- NOTE | 2020-06-03 09:00 | NUR ---
Family updated on pt status Family of FERDINAND DEGROOT updated on patient's status and condition after password verification. All questions and concerns addressed. Patient's daughter Moira verbalized understanding.
--- NOTE | 2020-06-03 09:00 | NUR ---
ASSESSMENT PERFORMED PATIENT RESTING IN BED, ALERT AND ORIENTED X4 WITH NOTED FATIGUE AND SHORTNESS OF BREATH ON EXERTION. PATIENT REPORTS TO THIS NURSE THAT SHE HAS RIGHT FLANK PAIN SHE TOUCHES NURSE TO SHOW HER WHERE IT HURTS. PATIENT ON CONTINUOUS BIPAP 12/5 WITH 100% FIO2 AND SATURATIONS IN THE 80's. THIS NURSE DISCUSSED PLAN OF CARE WITH PATIENT AND PATIENT NODDED HEAD YES IN UNDERSTANDING, SHE WAS MEDICATED FOR PAIN WITH AN ORAL TABLE FOR WHICH SHE WAS ABLE TO SWALLOW BUT DID HAVE INCREASE COUGH WITH THIN LIQUIDS, MD WILL BE NOTIFIED. PATIENT ALSO AWARE TO ATTEMPT TO LIE IN PRONE POSITION OR SIDE BY SIDE. PATIENT READJUSTED FOR COMFORT AND SHE WAS ABLE TO ASSIST NURSE WITH TURN. CALL LIGHT AND ALL PERSONAL BELONGINGS WITHIN REACH, FALL, SAFETY AND COVID PRECAUTIONS IN PLACE. WILL CONTINUE TO MONITOR DURING SHIFT.
[2020-06-03] MEDS: ENOXAPARIN SOD 40 MG/0.4 ML SYRINGE SC SCH ×2 (09:29→22:27)
[2020-06-03] MEDS: DexAMETHasone SOD PHOS 10MG/1ML VIAL INJ IV SCH (09:30)
[2020-06-03] MEDS: HCTZ 25 MG TAB PO SCH (10:00)
[2020-06-03] MEDS: INSULIN 70/30 1unit/0.01ml Susp (100units/ml) SC SCH ×2 (10:00→22:24)
[2020-06-03] MEDS: POTASSIUM CHL 20 Meq TABLET PO SCH (10:00)
[2020-06-03] MEDS: ASCORBIC ACID 1,000 MG TAB PO SCH (10:00)
[2020-06-03] MEDS: CHOLECALCIFEROL (VITD3) 2,000 UNIT CAP PO SCH (10:00)
[2020-06-03] MEDS: LOSARTAN POTASSIUM 50 MG TAB PO SCH (10:00)
[2020-06-03] MEDS: ZINC SULFATE 220mg CAP or TAB PO SCH (10:00)
[2020-06-03] MEDS: BUDESONIDE (INHALATION) 0.5 MG/2 ML NEB NEB SCH ×2 (10:00→22:50)
[2020-06-03] MEDS: DOXYCYCLINE 100 MG TAB/CAP PO SCH ×2 (10:00→22:25)
[2020-06-03] MEDS: cefTRIAXone 1GM/50ML D5W 50 ML IV SCH (10:24)
--- NOTE | 2020-06-03 11:05 | NUR ---
HOSPITALIST VISITS NURSE STATION DR ROWLAND NOTIFIED THAT PATIENT UNABLE TO SWALLOW THIN LIQUIDS SHE COUGHED WHEN SWALLOWING HER PAIN MEDICATION FOR RIGHT FLANK DISCOMFORT. ORDERS FOR PPN RECEIVED AND ORDERS WILL BE CARRIED OUT.
[2020-06-03] MEDS ORDERED: PPN PER PHARMACY 0 ML IV SCH (13:30)
[2020-06-03 14:38] LABS: BUN/Creatinine Ratio 50.4; Calcium 8.9 mg/dL (8.5-10.1); Magnesium 3.1 mg/dL (1.6-2.6); Phosphorus 5.1 mg/dL (2.5-4.90)
[2020-06-03 14:41] LABS: Bilirubin, Total 0.3 mg/dL (0.2-1.0); Pre Albumin 12.7 mg/dL (20.0-40.0); Total Protein 6.7 g/dL (6.4-8.2)
--- NOTE | 2020-06-03 15:17 | NUR ---
Family updated on pt status Family of DEGROOTFERDINAND updated on patient's status and condition after password verification. All questions and concerns addressed. Both granddaughter and daughter verbalized understanding.
--- NOTE | 2020-06-03 15:32 | NUR ---
PT SWITCHED TO TOTAL FACE MASK. POX 89%
[2020-06-03] MEDS ORDERED: PPN PER PHARMACY IV NR ×4 (20:00)
[2020-06-03] MEDS: ATORVASTATIN 20 MG TAB PO SCH (22:26)
[2020-06-04] VITALS (13 sets, daily range): BP systolic 0–156; BP diastolic 61–87
[2020-06-04] MEDS: ACCU-CHEK COMFORT CURVE STRIP VI SCH ×4 (00:47→17:56)
[2020-06-04] MEDS: InsuLIN REG 1unit/0.01ml Soln (100units/ml) SC SCH ×4 (00:48→17:56)
--- NOTE | 2020-06-04 02:22 | NUR ---
TITRATED TO 90% FIO2 VIA BIPAP. COMMUNICATED O2 CHANGES TO RN.
[2020-06-04 04:21] LABS: Albumin 1.7 g/dL (3.4-5.0); BUN/Creatinine Ratio 57.3; Calcium 8.4 mg/dL (8.5-10.1); Magnesium 3.2 mg/dL (1.6-2.6); Phosphorus 4.4 mg/dL (2.5-4.90); Potassium 3.8 mmol/L (3.5-5.1)
[2020-06-04 04:24] LABS: Bilirubin, Total 0.4 mg/dL (0.2-1.0)
[2020-06-04] MEDS: FUROSEMIDE 20 MG/2 ML VIAL IV SCH ×2 (05:36→17:59)
[2020-06-04] MEDS: GABAPENTIN 100 MG CAP PO SCH ×3 (05:36→21:52)
[2020-06-04] MEDS: BUDESONIDE (INHALATION) 0.5 MG/2 ML NEB NEB SCH ×2 (06:51→22:30)
[2020-06-04] MEDS: ALBUTEROL SULF 2.5 MG/0.5ML(0.5%) NEB SOLN NEB SCH ×3 (06:51→22:29)
[2020-06-04] MEDS: IPRATROPIUM BROM 0.5 MG/2.5ML INH SOL NEB SCH ×3 (06:51→22:29)
--- NOTE | 2020-06-04 08:00 | NUR ---
ASSESS- PT. LYING IN BED WITH EYES CLOSED, AROUSABLE TO NAME. ALERT AND ORIENTED TIMES FOUR. DENIES ANY PAIN OR DISCOMFORT. PT. ON BIPAP 12/5, FIO2- 95%. LUNGS CLEAR MARKUS. INSPIRATORY AND EXPIRATORY, DIMINISHED BASES MARKUS. SOB WITH EXERTION. RR 20'S. ABD. SOFT, FLAT, NON-TENDER. BOWEL SOUNDS ALL FOUR QUADRANTS. NO N/V. F/C TO GRAVITY WITH CLEAR YELLOW URINE. RADIAL PULSES STRONG, PALPABLE MARKUS. DORSALIS PEDAL PULSES STRONG, PALPABLE MARKUS. NO EDEMA. PT. MOVES UPPER AND LOWER EXTREMITIES WITHOUT DIFFICULTY. TURNS SELF IN BED. SKIN INTACT. MID-LINE DA INTACT WITH PPN AT 42 CC/HR. PT. COVID POSITIVE ON [place] PRECAUTIONS.
--- NOTE | 2020-06-04 09:20 | NUR ---
DR. ROWLAND Provider/Hospitalist at bedside. GAVE UPDATE ON PT.
[2020-06-04] MEDS: cefTRIAXone 1GM/50ML D5W 50 ML IV SCH (09:35)
[2020-06-04] MEDS: ASCORBIC ACID 1,000 MG TAB PO SCH (09:36)
[2020-06-04] MEDS: HCTZ 25 MG TAB PO SCH (09:36)
[2020-06-04] MEDS: POTASSIUM CHL 20 Meq TABLET PO SCH (09:37)
[2020-06-04] MEDS: CHOLECALCIFEROL (VITD3) 2,000 UNIT CAP PO SCH (09:37)
[2020-06-04] MEDS: ZINC SULFATE 220mg CAP or TAB PO SCH (09:37)
[2020-06-04] MEDS: LOSARTAN POTASSIUM 50 MG TAB PO SCH (09:37)
[2020-06-04] MEDS: DOXYCYCLINE 100 MG TAB/CAP PO SCH ×2 (09:37→21:52)
[2020-06-04] MEDS: ENOXAPARIN SOD 40 MG/0.4 ML SYRINGE SC SCH ×2 (09:38→21:52)
[2020-06-04] MEDS: DexAMETHasone SOD PHOS 10MG/1ML VIAL INJ IV SCH (09:38)
[2020-06-04] MEDS: INSULIN 70/30 1unit/0.01ml Susp (100units/ml) SC SCH ×2 (09:39→22:37)
--- NOTE | 2020-06-04 10:00 | NUR ---
PT. SWALLOWS WATER WITH STRAW WITHOUT DIFFICULTY. ABLE TO SWALLOW SM. PILLOWS WITH APPLESAUCE WITHOUT DIFFICULTY. PT. ASKED FOR LARGER PILLS TO BE CRUSHED WITH APPLE SAUCE, ABLE TO SWALLOW. NO SIGNS OF ASPIRATION OR CHOKING.
--- NOTE | 2020-06-04 12:13 | NUR ---
Nutrition Followup and Consult for new TPN Notes Wt: 58.0 kg Pt is covid positive in isolation in [place]. Pt is currently on BIPAP, Pt is to be NPO with TPN being initiated at 42 ml providing 540 kcal, 50g protein and 340 NPCs. This provides 26-30% of energy needs and 96-104% of protein needs. Continue to advance TPN to meet >75% of energy needs Est Energy needs: 3404-7812 kcals (30-35 kcal/kgBW) d/t pt with CKF, Est Protein needs: 48-52 gms/day (0.8-0.9 gm/kgBW) d/t pt with CKF. Will continue to monitor and reassess prn. LABS: BUN 75H, Creat 1.31H, CO2 20L, Alb 1.7L GLUC 231H, Ca 8.4L GI: Pt had 1 BM reported on 06/02 per RN doc. BS: 19 low risk. Refer to wound assessment report for further details. PES: Altered nutrition related lab values r.t current chronic medical condition aeb elev RFTs, low GFR, hyperglycemia, elev A1c, hypocalcemia Comments: Continue to monitor PO intake, labs, skin Will followup in 2-3 days. Rec: 1) Continue to advance TPn to meet >75% of energy needs 2) If albumin continues trending down with improved RFTs, consider Prostat 1 pkt BID. 3) Advance diet as medically feasible, consider swallow eval prior to adv diet 4) refer to CDE. 5) Continue current plan of care.
--- NOTE | 2020-06-04 14:30 | NUR ---
PT. HAD URGE TO HAVE BM, PLACED ON BEDPAN. PASSING FLATUS ONLY, NO BM.
--- NOTE | 2020-06-04 16:45 | NUR ---
PT. HAS BEEN RESTING WITH EYES CLOSED. NO SIGNS OF DISTRESS OR DISCOMFORT.
--- NOTE | 2020-06-04 17:55 | NUR ---
AT BEDSIDE IN FULL PPE DUE TO COVID PRECAUTIONS. RECEIVED PT ON BIPAP ([id number]) BIPAP CONNECTED TO RED OUTLET AND O2 SOURCE ALARMS ARE SET AND AUDIBLE. AMBU BAG AND MASK AT BEDSIDE. CHANGED MASK INTERFACE FROM TOTAL FACE MASK TO SIZE (M) FULL FACE MASK FOR PT COMFORT. NO CHANGES MADE WILL CONTINUE TO MONITOR.
--- NOTE | 2020-06-04 19:15 | NUR ---
START OF SHIFT NOTE PATIENT RECEIVED IN BED. NO DISTRESS. VITAL SIGNS STABLE. PATIENT AWAKE AND ALERT. PATIENT ON BIPAP AND CHANGED FROM TOTAL FACE MASK TO FULL FACE. PATIENT TOLERATING WELL. DENIES CHEST APIN OR SORTNESS OF BREATH AT THIS TIME. PATIENT ON BEDSIDE MONITOR. VITAL SIGNS STABLE. DENIES PAIN OR DISCOMFORT AT THIS TIME. PATIENT WITH VIDAL CATH DRAINING TO GRAVITY, COLLECTING CLEAR YELLOW URINE. PATIENT IN DROPLET ISOLATION. CALL [place] IN REACH, SAFETY MAINTAINED. WILL CONTINUE TO MONITOR.
[2020-06-04] MEDS ORDERED: PPN PER PHARMACY IV NR ×15 (20:00)
[2020-06-04] MEDS: ATORVASTATIN 20 MG TAB PO SCH (21:52)
--- NOTE | 2020-06-04 22:30 | NUR ---
AT BEDSIDE IN FULL PPE DUE TO COVID PRECAUTIONS. MED NEB TX GIVEN INLINE WITHOUT ADVERSE REACTION NOTED. NO CHANGES MADE WILL CONTINUE TO MONITOR.
[2020-06-05] VITALS (12 sets, daily range): BP systolic 107–149; BP diastolic 62–82
[2020-06-05] MEDS: ACCU-CHEK COMFORT CURVE STRIP VI SCH ×4 (00:15→17:36)
[2020-06-05] MEDS: InsuLIN REG 1unit/0.01ml Soln (100units/ml) SC SCH ×4 (00:16→17:36)
[2020-06-05 04:48] LABS: Albumin 2.1 g/dL (3.4-5.0); Calcium 9.1 mg/dL (8.5-10.1); Magnesium 3.1 mg/dL (1.6-2.6)
[2020-06-05 04:54] LABS: BUN/Creatinine Ratio 56.7; Bilirubin, Total 0.4 mg/dL (0.2-1.0); Phosphorus 3.2 mg/dL (2.5-4.90); Total Protein 7.4 g/dL (6.4-8.2)
[2020-06-05] MEDS: ALBUTEROL SULF 2.5 MG/0.5ML(0.5%) NEB SOLN NEB SCH ×3 (06:11→22:00)
[2020-06-05] MEDS: BUDESONIDE (INHALATION) 0.5 MG/2 ML NEB NEB SCH ×2 (06:11→22:00)
[2020-06-05] MEDS: IPRATROPIUM BROM 0.5 MG/2.5ML INH SOL NEB SCH ×3 (06:11→22:00)
[2020-06-05] MEDS: GABAPENTIN 100 MG CAP PO SCH ×3 (06:21→22:00)
[2020-06-05] MEDS: FUROSEMIDE 20 MG/2 ML VIAL IV SCH ×2 (06:21→17:52)
--- NOTE | 2020-06-05 06:47 | NUR ---
ABNORMAL X RAY FINDING REPORT CALL RECEIVED FROM RADIOLOGIST REPORTING ABNORMAL FINDINGS IN CHEST X-RAY THIS MORNING. CALL PLACED TO DR. SOTO, HOSPITALIST. 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 ORDERS RECEIVED FOR CONSULT PULMONOLOGY. NO OTHER ORDERS RECEIVED. PATIENT STABLE ON BIPAP. NO DISTRESS, VITAL SIGNS STABLE. WILL CONTINUE TO MONITOR.
--- NOTE | 2020-06-05 08:47 | NUR ---
DR. MCKNIGHT AT BEDSIDE
[2020-06-05] MEDS: cefTRIAXone 1GM/50ML D5W 50 ML IV SCH (08:51)
--- NOTE | 2020-06-05 08:56 | NUR ---
MD CONSULT Dr. Coffman (Pulm) consult called, awaiting call back.
[2020-06-05] MEDS: INSULIN 70/30 1unit/0.01ml Susp (100units/ml) SC SCH ×2 (09:44→22:05)
[2020-06-05] MEDS: DexAMETHasone SOD PHOS 10MG/1ML VIAL INJ IV SCH (09:44)
[2020-06-05] MEDS: ZINC SULFATE 220mg CAP or TAB PO SCH (09:44)
[2020-06-05] MEDS: ENOXAPARIN SOD 40 MG/0.4 ML SYRINGE SC SCH ×2 (09:44→22:04)
[2020-06-05] MEDS: CHOLECALCIFEROL (VITD3) 2,000 UNIT CAP PO SCH (09:45)
[2020-06-05] MEDS: HCTZ 25 MG TAB PO SCH (09:45)
[2020-06-05] MEDS: LOSARTAN POTASSIUM 50 MG TAB PO SCH (09:45)
[2020-06-05] MEDS: DOXYCYCLINE 100 MG TAB/CAP PO SCH ×2 (09:45→22:00)
[2020-06-05] MEDS: ASCORBIC ACID 1,000 MG TAB PO SCH (09:45)
[2020-06-05] MEDS: POTASSIUM CHL 20 Meq TABLET PO SCH (09:46)
--- NOTE | 2020-06-05 09:46 | NUR ---
PATIENT SATES SHE IS UNABLE TO SWALLOW PO PILLS A THIS TIME. WILL INFORM MD
--- NOTE | 2020-06-05 10:20 | NUR ---
Respiratory note: PT TAKEN OFF OF BIPAP, AND PLACED ON HFNC 70L 100% PER DR BARR'S ORDERS DUE TO A 5-10% RIGHT SIDE PNEUMOTHORAX. PT TOLERATING CHANGE WELL, WHILE IN PRONE POSITION. WILL CONTINUE TO MONITOR PT. RN AWARE. CHARTING COMPLETE FROM OUTSIDE OF PT ROOM PER COVID-19 PRECAUTIONS/PROTOCOL.
--- NOTE | 2020-06-05 10:24 | NUR ---
PATIENT PLACED ON HIGH FLOW PER DR. العراقي ORDER
--- NOTE | 2020-06-05 11:05 | NUR ---
FAMILY DAUGHTER MICHELLE UPDATED ON PATIENT STATUS. ALL QUESTIONS AND CONCERNS ADDRESSED AT THIS TIME
--- NOTE | 2020-06-05 17:17 | NUR ---
ORAL CARE PERFORMED
--- NOTE | 2020-06-05 19:10 | NUR ---
Shift Open Note Received shift report and assumed care of patient, Patient is resting quietly in bed patient is on HF NC 70L 100%
[2020-06-05] MEDS ORDERED: PPN PER PHARMACY IV NR ×8 (20:00)
[2020-06-05] MEDS: ATORVASTATIN 20 MG TAB PO SCH (22:00)
--- NOTE | 2020-06-05 22:00 | NUR ---
Patient refused oral Medication at this time
--- NOTE | 2020-06-06 00:07 | NUR ---
Patient oxygen Saturation Declining Patient oxygen in the low 80's Pulse ox replaced patient in upper 80's on HF NC 70L 100% FIO2 oral care performed at this time.
[2020-06-06 00:12] VITALS: BP 108/62
[2020-06-06] MEDS: ACCU-CHEK COMFORT CURVE STRIP VI SCH ×2 (00:17→06:55)
[2020-06-06] MEDS: InsuLIN REG 1unit/0.01ml Soln (100units/ml) SC SCH ×2 (00:18→06:59)
[2020-06-06 00:40] VITALS: BP 107/62
--- NOTE | 2020-06-06 02:44 | NUR ---
Reposition Patient Attempted to reposition patient, oxygen saturation dropped to the mid 70's pulse ox replaced and patient oxygen to the low 80's
[2020-06-06 04:15] VITALS: BP 117/63
[2020-06-06 04:51] LABS: Basophils # (auto) 0 10 ^3/uL (0-0.2); Basophils % (auto) 0.2 % (0.0-2.0); Eosinophils # (auto) 0 10 ^3/uL (0-0.8); Hematocrit 43.5 % (36.0-46.0); Hemoglobin 14.1 g/dL (12.2-16.2); Lymphocytes # (auto) 0.5 10 ^3/uL (0.4-5.4); Lymphocytes % (auto) 3.2 % (10.0-50.0); Mean Corpuscular Hemoglobin 29.2 pg (28.0-32.0); Mean Corpuscular Hgb Conc. 32.4 g/dL (32.0-36.0); Mean Corpuscular Volume 90.1 fL (80.0-100.0); Monocytes # (auto) 0.6 10 ^3/uL (0-1.3); Monocytes % (auto) 3.4 % (0.0-12.0); Neutrophils # (auto) 15.4 10 ^3/uL (1.6-8.6); Neutrophils % (auto) 93.2 % (37.0-80.0); Platelet Count (auto) 268 10^3/uL (140-450); Red Blood Cells 4.83 10^6/uL (4.0-5.20); White Blood Cell 16.5 10^3/uL (4.4-10.8)
[2020-06-06 05:18] LABS: Potassium 3.6 mmol/L (3.5-5.1)
[2020-06-06 05:26] LABS: Albumin 1.9 g/dL (3.4-5.0); BUN/Creatinine Ratio 73.7; Bilirubin, Total 0.3 mg/dL (0.2-1.0); Magnesium 2.8 mg/dL (1.6-2.6); Total Protein 6.8 g/dL (6.4-8.2)
--- NOTE | 2020-06-06 06:35 | NUR ---
Received call from Hospitalist Provided Provider with Critical Lab BUN 87 No New orders at this time.
[2020-06-06 06:45] VITALS: BP 117/63
[2020-06-06] MEDS: BUDESONIDE (INHALATION) 0.5 MG/2 ML NEB NEB SCH (06:45)
[2020-06-06] MEDS: ALBUTEROL SULF 2.5 MG/0.5ML(0.5%) NEB SOLN NEB SCH (06:45)
[2020-06-06] MEDS: FUROSEMIDE 20 MG/2 ML VIAL IV SCH (07:01)
--- NOTE | 2020-06-06 07:15 | NUR ---
Hospitalist Page Patient oxygen saturation is 80, HR is 116, RR 44
--- NOTE | 2020-06-06 07:20 | NUR ---
Received Call from Hospitalist Provider order patient to be placed on bipap and give 0.5 mg Ativan once on bipap.
--- NOTE | 2020-06-06 07:35 | NUR ---
Respiratory note: GOT CALLED TO PLACE PATIENT ON BIPAP FOR INCREASED WORK OF BREATHING AND DESATURATING. RR WAS IN THE 50'S AND SPO2 WAS IN THE LOW 70'S.
[2020-06-06] MEDS ORDERED: LORazepam 2MG/ML-1ML VIAL IV ONE (07:45)
--- NOTE | 2020-06-06 07:50 | NUR ---
BEDSIDE AT BEDSIDE WITH RT. PT HAS PERIODS OF DESATURATION.
[2020-06-06] MEDS ORDERED: ETOMIDATE (2MG/ML) 20ML VIAL IV ONE (07:58)
--- NOTE | 2020-06-06 08:00 | NUR ---
PT INTUBATED IN THE MORNING. PT SATURATION IN THE 70S. SEE OTHER NOTES FOR MORE DETAILS.
[2020-06-06] MEDS ORDERED: SUCCINYLCHOLINE CHLORIDE 20 MG/ML 10ML VIAL IV ONE (08:01)
[2020-06-06] MEDS ORDERED: MIDAZOLAM DRIP 50 mg/50mL 50 ML IV ONE (08:15)
--- NOTE | 2020-06-06 08:30 | NUR ---
CODE SHEET SEE CODE SHEET FOR MORE DETAILS.
[2020-06-06] MEDS ORDERED: NOREPINEPHRINE 8 MG/250ML KIT 250 ML IV ONE (08:40)
[2020-06-06] MEDS ORDERED: SODIUM BICARBONATE 8.4% INJ 50ML SYRINGE ONE ×2 (08:56→09:12)
--- NOTE | 2020-06-06 09:20 | NUR ---
FAMILY AT BEDSIDE FAMILY SPOKE WITH HOSPITALIST. PER FAMILY PT NOW DNR.
--- NOTE | 2020-06-06 11:15 | NUR ---
[employer]/ [employer] CASE NUMBER FOR [employer] [id number]. [employer] [id number]. BODY RELEASED BY [employer] AND NOT A CANDIDATE FOR [employer].
[2020-06-06] MEDS ORDERED: NOREPINEPHRINE 8 MG/250ML KIT 250 ML IV SCH (11:30)
--- NOTE | 2020-06-06 14:00 | NUR ---
PT TRANSFERRED BY [facility] FOR [facility]. FAMILY AWARE. FORM IN CHART.
[2020-06-06] MEDS ORDERED: SODIUM BICARBONATE 8.4% INJ 50ML SYRINGE IV ONE (14:39)
[2020-06-06] MEDS ORDERED: ATROPINE SULF 1 MG/10ml SYR IV ONE (14:39)
[2020-06-06] MEDS ORDERED: EPINEPHrine HCL 1 MG/10 ML SYRG IV ONE (14:39)
[2020-06-06] MEDS ORDERED: ADENOSINE 6 MG/2 ML INJ IV ONE (14:39)
== END 2020-06-06 14:40 | disposition expired | DRG 166 ==
LOC: ER 13:44 → TELE 16:18 → TELE-EAST 23:45 → DOU IN ICU 05-24 15:05
PROVIDERS: ADMIT Hospitalist; ATTEND Internal Medicine Pulmonary Disease
PROC: XW13325 Transfusion of Convalescent Plasma (Nonautologous) into Peripheral Vein, Percutaneous Approach, New Technology Group 5 (ICD-10-PCS; principal; 2020-05-23)
PROC: XW033E5 Introduction of Remdesivir Anti-infective into Peripheral Vein, Percutaneous Approach, New Technology Group 5 (ICD-10-PCS; 2020-05-23)
PROC: 5A09357 Assistance with Respiratory Ventilation, Less than 24 Consecutive Hours, Continuous Positive Airway Pressure (ICD-10-PCS; 2020-06-01)
PROC: 0B9K30Z Drainage of Right Lung with Drainage Device, Percutaneous Approach (ICD-10-PCS; 2020-06-06)
PROC: 5A1935Z Respiratory Ventilation, Less than 24 Consecutive Hours (ICD-10-PCS; 2020-06-06)
PROC: 5A12012 Performance of Cardiac Output, Single, Manual (ICD-10-PCS; 2020-06-06)
PROC: 0BH17EZ Insertion of Endotracheal Airway into Trachea, Via Natural or Artificial Opening (ICD-10-PCS; 2020-06-06)
DX: U07.1 COVID-19 (principal); J12.89 Other viral pneumonia; J96.01 Acute respiratory failure with hypoxia; N17.0 Acute kidney failure with tubular necrosis; E87.1 Hypo-osmolality and hyponatremia; J93.9 Pneumothorax, unspecified; T79.7XXA Traumatic subcutaneous emphysema, initial encounter; J98.19 Other pulmonary collapse; N39.0 Urinary tract infection, site not specified; E11.8 Type 2 diabetes mellitus with unspecified complications; I46.9 Cardiac arrest, cause unspecified; E11.40 Type 2 diabetes mellitus with diabetic neuropathy, unspecified; E11.21 Type 2 diabetes mellitus with diabetic nephropathy; N18.9 Chronic kidney disease, unspecified; E78.5 Hyperlipidemia, unspecified; E66.9 Obesity, unspecified; I12.9 Hypertensive chronic kidney disease with stage 1 through stage 4 chronic kidney disease, or unspecified chronic kidney disease; E04.2 Nontoxic multinodular goiter; E11.22 Type 2 diabetes mellitus with diabetic chronic kidney disease; E11.65 Type 2 diabetes mellitus with hyperglycemia; Z83.3 Family history of diabetes mellitus; Z79.4 Long term (current) use of insulin; Z68.20 Body mass index [BMI] 20.0-20.9, adult; B37.9 Candidiasis, unspecified
CPT/HCPCS: 36415; 36600; 71045; 71250; 80048; 80053; 80061; 80202; 80307; 81001; 82040; 82728; 82805; 82962; 83036; 83605; 83615; 83735; 83880; 84100; 84443; 84478; 84484; 85025; 85379; 86141; 86850; 86900; 86901; 87070; 87077; 87081; 87086; 87205; 87426; 93005; 93970; 94002; 94640; 94660; 94668; G0378; J0153; J0330; J0696; J1100; J1815; J2001; J2250; J2543